=== PATIENT | female | born 1950 | race Caucasian/White ===

== ENCOUNTER 2017-01-15 05:53 | Day surgery (SDC) | payer MEDICARE, MEDICAID ==
[~2017-01-15 05:53] MED LIST: Buffered Lidocaine 0.9% SYRIN* 5 ML/SYR SYRINGE INTRADERM ONE
[2017-01-15] MEDS ORDERED: Buffered Lidocaine 0.9% SYRIN* 5 ML/SYR SYRINGE ONE (06:05)
[2017-01-15] MEDS ORDERED: Bupivacaine 0.25% SDV* 30 ML ONE (06:20)
[2017-01-15] MEDS ORDERED: Midazolam* 1 MG/ML 2 ML VIAL (2 MG) ONE (06:43)
[2017-01-15] MEDS ORDERED: Famotidine IV* 10 MG/ML 2 ML (20 mg) ONE (06:43)
[2017-01-15] MEDS ORDERED: Dexamethasone IV* 4 MG/ML 1 ML (4 MG) ONE (06:43)
[2017-01-15] MEDS ORDERED: Lidocaine 2% PF * 5 ML VIAL ONE (06:44)
[2017-01-15] MEDS ORDERED: Propofol* 10 MG/ML 20 ML BTL IV PUSH ONE (06:44)
[2017-01-15] MEDS ORDERED: Phenylephrine IV* 40 MCG/ML 10 ML SYRINGE ONE (07:07)
[2017-01-15] MEDS ORDERED: Ondansetron INJ* 2 MG/ML VIAL ONE (07:19)
[2017-01-15 08:52] VITALS: BP 118/62
--- NOTE | 2017-01-16 03:07 | OP ---
DATE OF OPERATION: 01/15/17 - [facility] DATE OF : 50 SURGEON: Holden Murray MD METROLOGY SPECIALIST: None. ANESTHESIOLOGIST: Dr. De Oliveira. ANESTHESIA: General. PRE-OP DIAGNOSIS: Right palm mass. POST-OP DIAGNOSIS: Right palm mass. OPERATIVE PROCEDURE: Excision of right palm fascial mass, consistent with Dupuytren's nodule. INDICATIONS: Jeri is a 66-year-old female who has a right palm nodule near the origin of the thenar muscles. It was very symptomatic to her. When she would use her cane, it would cause her lot of discomfort. She also says that occasionally it would get bluish in appearance. 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 I talked to her about just observing it versus excising it. She said it was very symptomatic and she wanted it out, so we discussed the risks and benefits including the risk of damage to the motor branch and she wanted to proceed. ESTIMATED BLOOD LOSS: 2 mL. COMPLICATIONS: None. 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 DESCRIPTION OF PROCEDURE: Jeri was seen in the preoperative holding area. The correct side, site, and procedure were identified. We came back to the operating room, where the arm was prepped and draped in the usual fashion and formal time-out was performed. I made a V-shaped incision and raised a full-thickness flap right off of the nodule. It was indeed a thickened area of the palmar fascia. I found clean healthy margins and began the excision proximally. It was raised deeply straight off the subcutaneous tissue taking great care to preserve any deep neurovascular structures. Once the mass was fully excised, I went ahead and passed it off. The wound was copiously irrigated. I excised just a bit more of the palmar fascia proximally. I was very satisfied with the excision at this point, so I went ahead and irrigated out the wound. The skin was closed with 4-0 nylon suture. The operative area was infiltrated with 0.25% Marcaine. Wound was dressed with Xeroform, 4x4, sterile Webril and an Chris wrap. Tourniquet was deflated. The arm had been exsanguinated with the Esmarch and the tourniquet inflated to 250 mmHg prior to making skin incision. The hand pinked up immediately. She was then taken to recovery room in stable condition. [id number]/[facility] #: [id number] ERIN
== END 2017-01-15 08:45 | disposition home or self-care (01) ==
LOC: OREAST 05:53
PROVIDERS: ATTEND Orthopaedic Surgery Hand Surgery
DX: M72.0 Palmar fascial fibromatosis [Dupuytren] (principal); G40.909 Epilepsy, unspecified, not intractable, without status epilepticus; F17.210 Nicotine dependence, cigarettes, uncomplicated; Z79.82 Long term (current) use of aspirin; Z88.1 Allergy status to other antibiotic agents; Z88.5 Allergy status to narcotic agent
CPT/HCPCS: 88305; J1100; J2250; J2405; J2704

== ENCOUNTER 2018-04-14 18:15 | Emergency (ER) | payer MEDICARE, MEDICAID ==
[2018-04-14 18:33] VITALS: BP 102/55
[2018-04-14] MEDS ORDERED: Ibuprofen TAB* 600 MG PO ONE (18:58)
--- NOTE | 2018-04-14 19:27 | ED ---
Upper Extremity Pain - HPI Summary HPI Summary: Patient is a 67-year-old female presenting to the ED with a left wrist injury. 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 She states she is unable to flex or extend at the wrist. Denies any forearm or elbow pain. Denies any pain to the MCP joints or the fingertips. Denies any pain to the thumb. Denies any numbness or tingling, no color temperature changes are noted. She has never injured this area before. 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 - History of Current Complaint Chief Complaint: EDExtremityUpper Stated Complaint: LT WRIST INJURY Time Seen by Provider: 04/14/18 18:23 Hx Obtained From: Patient Mechanism Of Injury: Other - FOOSH injury Onset/Duration: Started Minutes Ago Timing: Constant Severity Initially: Moderate Severity Currently: Moderate Pain Location: Wrist Character: Aching Aggravating Factor(s): Movement, Lifting, Extension Alleviating Factor(s): Rest, Ice Associated Signs & Symptoms: Negative: Swelling, Redness, Bruising, Numbness/ Tingling, Chest Pain, Diaphoresis, Nausea, Vomiting Related History: Dominant Hand Right - Risk Factors Non-Orthopedic Risk Factor: Negative DVT Risk Factors: Negative Septic Arthritis Risk Factor: Negative Compartment Syndrome Risk Factors: Pain - Allergies/Home Medications Allergies/Adverse Reactions: Allergies Allergy/AdvReac Type Severity Reaction Status Date / Time MS Codeine [Codeine] AdvReac Mild GI Upset Verified 12/15/16 15:59 MS Erythromycin AdvReac Mild GI Upset Verified 12/15/16 15:59 [Erythromycin] PMH/Surg Hx/FS Hx/Imm Hx Previously Healthy: Yes Endocrine/Hematology History: Denies: Hx Anticoagulant Therapy, Hx Diabetes, Hx Thyroid Disease Cardiovascular History: Reports: Other Cardiovascular Problems/Disorders - 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, had cardiac cath, 0 stents Denies: Hx Angina, Hx Coronary Artery Disease, Hx Hypercholesterolemia, Hx Hypertension, Hx Myocardial Infarction, Hx Pacemaker/ICD, Hx Peripheral Vascular Disease, Hx Valvular Heart Disease Respiratory History: Reports: Hx Sleep Apnea Denies: Hx Asthma, Hx Chronic Obstructive Pulmonary Disease (COPD) GI History: Reports: Hx Gall Bladder Disease - Cholecystectomy, Hx Gastroesophageal Reflux Disease, Hx Irritable Bowel, Other GI Disorders - ULCERATIVE COLITIS Denies: Hx Ulcer History: Denies: Hx Renal Disease Musculoskeletal History: Denies: Hx Arthritis, Hx Osteoporosis Sensory History: Reports: Hx Cataracts - bilateral IOL, Hx Contacts or Glasses - glasses Denies: Hx Glaucoma, Hx Hearing Aid Opthamlomology History: Reports: Hx Cataracts - bilateral IOL, Hx Contacts or Glasses - glasses Denies: Hx Glaucoma Neurological History: Reports: Hx Headaches, Hx Migraine - on meds, Hx Seizures - on meds, Other Neuro Impairments/Disorders - hx of suicide attempts - last one 11/13/15 Denies: Hx Dementia, Hx Transient Ischemic Attacks (TIA) Psychiatric History: Reports: Hx Anxiety - on meds, Hx Depression - on meds, Hx Inpatient Treatment, Hx Suicide Attempt Denies: Hx Eating Disorder, Hx Panic Disorder, Hx of Violent Episodes Against Others, Hx Substance Abuse - Cancer History Hx Chemotherapy: No Hx Radiation Therapy: No - Surgical History Surgery Procedure, Year, and Place: Tracheostomy 1970. Hysterectomy 1992 ADDITIONAL ABD SURG POST HYSTERECTOMY COMPLICATIONS - ADHESIONS. Cholecystectomy 1992. UTERINE SUSPENSION - . BILATERAL CATATRACTS - 2009. CARDIAC CATH - NO STENTS - 1992 - CAUTERIZE NODE ON HEART Hx Anesthesia Reactions: No - Immunization History Hx Pertussis Vaccination: No Immunizations Up to Date: Yes Infectious Disease History: No Infectious Disease History: Denies: Hx Hepatitis, Hx Human Immunodeficiency Virus (HIV), Traveled Outside the [place] in Last 30 Days - Family History Known Family History: Positive: None, Other - breast cancer - Social History Occupation: Unemployed Lives: With Family Alcohol Use: Rare Hx Substance Use: No Substance Use Type: Reports: None Hx Tobacco Use: Yes Smoking Status (MU): Light Every Day Tobacco Smoker Type: Cigarettes Amount Used/How Often: 1/2 ppd for 40 years Have You Smoked in the Last Year: Yes Review of Systems Constitutional: Negative Negative: Fever, Chills, Fatigue, Skin Diaphoresis Negative: Palpitations, Chest Pain Negative: Shortness Of Breath, Cough Genitourinary: Negative Positive: no symptoms reported, see HPI Positive: Arthralgia - left wrist pain Positive: Other Neurological: Negative All Other Systems Reviewed And Are Negative: Yes Physical Exam Triage Information Reviewed: Yes Vital Signs On Initial Exam: Initial Vitals Temp Pulse Resp BP Pulse Ox 97.2 F 76 18 102/55 97 04/14/18 18:31 04/14/18 18:31 04/14/18 18:31 04/14/18 18:31 04/14/18 18:31 Vital Signs Reviewed: Yes Appearance: Positive: Well-Appearing, Well-Nourished Skin: Positive: Warm, Skin Color Reflects Adequate Perfusion Head/Face: Positive: Normal Head/Face Inspection Eyes: Positive: EOMI, JARRELL, Conjunctiva Clear Neck: Positive: Supple, No Lymphadenopathy Respiratory/Lung Sounds: Positive: Clear to Auscultation, Breath Sounds Present Cardiovascular: Positive: RRR, Pulses are Symmetrical in both Upper and Lower Extremities Musculoskeletal: Positive: Pain @ - left dorsum of the wrist - unable to flex or extend d/t pain - good cap refill/ pulses +2 intact bilaterally Neurological: Positive: Speech Normal Psychiatric: Positive: Affect/Mood Appropriate AVPU Assessment: Alert Diagnostics - Vital Signs Vital Signs Temp Pulse Resp BP Pulse Ox 04/14/18 18:31 97.2 F 76 18 102/55 97 - Laboratory Lab Statement: Any lab studies that have been ordered have been reviewed, and results considered in the medical decision making process. - Radiology No standard instances Xray Interpretation: No Acute Changes Radiology Interpretation Completed By: ED Physician - Read by MELITON Del Cid. Negative for any acute fracture. Course/Dx - Course Course Of Treatment: Patient is evaluated for left wrist injury. Left wrist x- ray obtained and read by MELITON Del Cid as negative for any acute fracture. She will still be placed in a cockup wrist splint at this time and will follow- up with orthopedics if any symptoms worsen. I have also discussed with the patient we will call tomorrow morning if there is any discrepancy with the radiology read report in the a.m. She is given ibuprofen with minimal improvement. - Diagnoses Differential Diagnosis/HQI/PQRI: Positive: Fracture (Closed), Strain, Sprain Provider Diagnoses: Pain in left wrist Discharge - Sign-Out/Discharge Documenting (check all that apply): Patient Departure - Discharge Plan Condition: Stable Disposition: HOME Referrals: Herbert Romero MD [Primary Care Provider] - Holden Murray MD [Medical Doctor] - Additional Instructions: Please follow-up with Orthopedics if any symptoms worsen Keep the splint applied for comfort Ice to the area Ibuprofen 600 mg 3 times daily - Billing Disposition and Condition Condition: STABLE Disposition: Home
--- NOTE | 2018-04-15 08:03 | RAD ---
Indication: Left wrist pain 3 views of the wrist demonstrates no fracture. No other bone or joint abnormality is identified. IMPRESSION: NO FRACTURE OF THE WRIST IS NOTED. R0
== END 2018-04-14 20:14 | disposition home or self-care (01) ==
LOC: ED 18:15
DX: M25.532 Pain in left wrist (principal); W19.XXXA Unspecified fall, initial encounter; Y92.9 Unspecified place or not applicable; F17.210 Nicotine dependence, cigarettes, uncomplicated; Z88.5 Allergy status to narcotic agent; Z88.3 Allergy status to other anti-infective agents
CPT/HCPCS: 99281; A9270-GY

== ENCOUNTER 2018-06-26 14:21 | Observation (INO) | payer MEDICARE, MEDICAID ==
[2018-06-26] MEDS ORDERED: Ondansetron INJ* 2 MG/ML VIAL IV ONE (14:31)
[2018-06-26] MEDS ORDERED: NS 0.9% 1000 ML* 1,000 ML IV ONE (14:31)
--- NOTE | 2018-06-26 14:34 | ED ---
Abdominal Pain/Female - HPI Summary HPI Summary: Patient is a 67 y/o F brought in by ambulance with complaints of lower abdominal pain, loose stools, nausea and syncopal episode. She reports Hx of chronic abdominal pain, woke up with severe abdominal pain this morning that is similar to her chronic pain. Pain is described as cramping. Patient states that she was going to the kitchen to get her dogs water, states that she woke up on the floor. She states that she is unsure of duration of syncope. Patient called EMS. EMS reported BG 150, o2 100. Chest pain, SOB, blurred vision is denied. Patient states she has received multiple diagnoses for her abdominal pain from multiple doctors, including IBS, GERD, and "something-colitis". She notes BERMUDEZ, but reports Hx of headaches. In the room, pain is rated 9/10. Patient is unsure of date of her last CT scan. On triage, nothing is noted to aggravate/alleviate Sx. Home medications and allergies are reviewed. - History of Current Complaint Stated Complaint: ABD PAIN Hx Obtained From: Patient Onset/Duration: Lasting Hours - episode onset this morning, Still Present Timing: Hours - episode onset this morning Severity Currently: Severe - 9/10 Pain Intensity: 9 Pain Scale Used: 0-10 Numeric - 9/10 Location: Other - lower abdomen Character: Cramping Aggravating Factor(s): Nothing Alleviating Factor(s): Nothing Associated Signs and Symptoms: Positive: Nausea, Other: - POSITIVE - LOOSE STOOLS, SYNCOPAL EPISODE, BERMUDEZ; NEGATIVE - SOB, BLURRED VISION. 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, had cardiac cath, 0 stents Denies: Hx Angina, Hx Coronary Artery Disease, Hx Hypercholesterolemia, Hx Hypertension, Hx Myocardial Infarction, Hx Pacemaker/ICD, Hx Peripheral Vascular Disease, Hx Valvular Heart Disease Respiratory History: Reports: Hx Sleep Apnea Denies: Hx Asthma, Hx Chronic Obstructive Pulmonary Disease (COPD) GI History: Reports: Hx Gall Bladder Disease - Cholecystectomy, Hx Gastroesophageal Reflux Disease, Hx Irritable Bowel, Other GI Disorders - ULCERATIVE COLITIS Denies: Hx Ulcer History: Denies: Hx Renal Disease Musculoskeletal History: Denies: Hx Arthritis, Hx Osteoporosis Sensory History: Reports: Hx Cataracts - bilateral IOL, Hx Contacts or Glasses - glasses Denies: Hx Glaucoma, Hx Hearing Aid Opthamlomology History: Reports: Hx Cataracts - bilateral IOL, Hx Contacts or Glasses - glasses Denies: Hx Glaucoma Neurological History: Reports: Hx Headaches, Hx Migraine - on meds, Hx Seizures - on meds, Other Neuro Impairments/Disorders - hx of suicide attempts - last one 11/13/15 Denies: Hx Dementia, Hx Transient Ischemic Attacks (TIA) Psychiatric History: Reports: Hx Anxiety - on meds, Hx Depression - on meds, Hx Inpatient Treatment, Hx Suicide Attempt Denies: Hx Eating Disorder, Hx Panic Disorder, Hx of Violent Episodes Against Others, Hx Substance Abuse - Cancer History Hx Chemotherapy: No Hx Radiation Therapy: No - Surgical History Surgery Procedure, Year, and Place: Tracheostomy 1970. Hysterectomy 1992 ADDITIONAL ABD SURG POST HYSTERECTOMY COMPLICATIONS - ADHESIONS. Cholecystectomy 1992. UTERINE SUSPENSION - . BILATERAL CATATRACTS - 2009. CARDIAC CATH - NO STENTS - 1992 - CAUTERIZE NODE ON HEART Hx Anesthesia Reactions: No Infectious Disease History: Denies: Hx Hepatitis, Hx Human Immunodeficiency Virus (HIV) - Family History Known Family History: Positive: Other - breast cancer - Social History Alcohol Use: Rare Hx Substance Use: No Substance Use Type: Reports: None Hx Tobacco Use: Yes Smoking Status (MU): Light Every Day Tobacco Smoker Type: Cigarettes Amount Used/How Often: 1/2 ppd for 40 years Have You Smoked in the Last Year: Yes Review of Systems Negative: Blurred Vision Negative: Chest Pain Negative: Shortness Of Breath Positive: Abdominal Pain, Nausea, Other - POSITIVE - LOOSE STOOLS Positive: Headache, Syncope All Other Systems Reviewed And Are Negative: Yes Physical Exam - Summary Physical Exam Summary: VITAL SIGNS: Reviewed. GENERAL: Patient is a well-developed and nourished female who is lying comfortable in the stretcher. Patient is not in any acute respiratory distress. HEAD AND FACE: Normocephalic and atraumatic. EYES: PERRLA, EOMI x 2, No injected conjunctiva. EARS: Hearing grossly intact. Ear canals and tympanic membranes are WNL. MOUTH: Oropharynx within normal limits. NECK: Supple, trachea is midline, no adenopathy, no JVD. CHEST: Symmetric, no tenderness at palpation LUNGS: Clear to auscultation bilaterally. No wheezing or crackles. CVS: RRR, S1 and S2 present, no murmurs or gallops appreciated. ABDOMEN: Soft, diffuse abdominal tender. No signs of distention. Positive bowel sounds. No rebound no guarding, and no masses palpated. No abdominal bruit or pulsations. EXTREMITIES: FROM in all major joints, no edema, no cyanosis or clubbing. NEURO: Alert and oriented x 3. No acute neurological deficits. Speech is normal. SKIN: Dry and warm Triage Information Reviewed: Yes Vital Signs On Initial Exam: Initial Vitals Pulse BP Pulse Ox 58 125/72 95 06/26/18 14:26 06/26/18 14:26 06/26/18 14:26 Vital Signs Reviewed: Yes Diagnostics - Laboratory Result Diagrams: 06/26/18 14:38 06/26/18 14:38 Lab Statement: Any lab studies that have been ordered have been reviewed, and results considered in the medical decision making process. - CT ABD/PEL CT CT Interpretation Completed By: Radiologist Summary of CT Findings: IMPRESSION: 1. NO EVIDENCE FOR ACUTE FINDING. 2. STATUS POST CHOLECYSTECTOMY THERE IS INTRA AND EXTRAHEPATIC DUCTAL DISTENTION WHICH IS. UNCHANGED. 3. COMPLEX CYSTIC AND SOLID LESION IN THE LEFT KIDNEY. RECOMMEND AN OUTPATIENT MULTIPHASE. CONTRAST-ENHANCED CT OF THE KIDNEYS FOR FURTHER EVALUATION. 4. BILATERAL NONOBSTRUCTING RENAL CALCULI. 5. STATUS POST HYSTERECTOMY. THIS REPORT WAS REVIEWED BY ED PHYSICIAN. - EKG 1442 Cardiac Rate: Bradycardia - rate of 52 bpm EKG Rhythm: Sinus Bradycardia EKG Comparison: No Significant Change - similar to EKG from 07/11/16 Summary of EKG Findings: EKG showed sinus bradycardia with rate of 52 bpm, no ST elevation, similar to EKG from 07/11/16 Abdominal Pain Fem Course/Dx - Course Course Of Treatment: Patient is a 67 y/o F brought in by ambulance with complaints of lower abdominal pain, loose stools, nausea and syncopal episode. She reports Hx of chronic abdominal pain, woke up with severe abdominal pain this morning that is similar to her chronic pain. Pain is described as cramping. Patient states that she was going to the kitchen to get her dogs water , states that she woke up on the floor. She states that she is unsure of duration of syncope. Patient called EMS. EMS reported BG 150, o2 100. Chest pain , SOB, blurred vision is denied. Patient states she has received multiple diagnoses for her abdominal pain from multiple doctors, including IBS, GERD, and "something-colitis". She notes BERMUDEZ, but reports Hx of headaches. In the room , pain is rated 9/10. Patient is unsure of date of her last CT scan. On triage, nothing is noted to aggravate/alleviate Sx. Home medications and allergies are reviewed. Blood work without any significant abnormality except for glucose 116 , lipase 165. Abdominal pelvic CT impression: IMPRESSION: 1. NO EVIDENCE FOR ACUTE FINDING. 2. STATUS POST CHOLECYSTECTOMY THERE IS INTRA AND EXTRAHEPATIC DUCTAL DISTENTION WHICH IS. UNCHANGED. 3. COMPLEX CYSTIC AND SOLID LESION IN THE LEFT KIDNEY. RECOMMEND AN OUTPATIENT MULTIPHASE. CONTRAST-ENHANCED CT OF THE KIDNEYS FOR FURTHER EVALUATION. 4. BILATERAL NONOBSTRUCTING RENAL CALCULI. 5. STATUS POST HYSTERECTOMY. It seems that the etiology of the pain may be due to that patient is developing acute pancreatitis. The patient has been given 2 doses of morphine, zofran for the nausea and vomiting. Since the patient continues to have pain I discussed my physical exam and findings with Dr. Teresa from the hospital services, Dr. Teresa accepted the patient for admission. The patient is hemodynamically stable. - Diagnoses Provider Diagnoses: Pancreatitis - Provider Notifications Discussed Care Of Patient With: Lupe Teresa Time Discussed With Above Provider: 15:55 Instructed by Provider To: Other - Patient's case was discussed with Dr. Teresa. Dr. Teresa accepts patient for admission. Discharge - Sign-Out/Discharge Documenting (check all that apply): Patient Departure - admit - Discharge Plan Condition: Stable Disposition: ADMITTED TO [facility] Referrals: Herbert Romero MD [Primary Care Provider] - - Billing Disposition and Condition Condition: STABLE Disposition: Admitted to [facility] - Attestation Statements Document Initiated by Scribe: Yes Documenting Scribe: ALFONSO DUNLAP Provider For Whom Scribe is Documenting (Include Credential): ISABEL DOWLING MD Scribe Attestation: I, ALFONSO DUNLAP , scribed for ISABEL DOWLING MD on 06/26/18 at 1838. Scribe Documentation Reviewed: Yes Provider Attestation: The documentation as recorded by the [email or web address] romero accurately reflects the service I personally performed and the decisions made by me, ISABEL DOWLING MD Status of Scribe Document: Viewed
[2018-06-26] MEDS ORDERED: Morphine VIAL* 4 MG/ML VIAL (1 ml vial) IV ONE ×2 (14:35→16:13)
[2018-06-26 14:49] LABS: ABS Basophils 0.1 10^3/ul (0-0.2); ABS Eosinophils 0.1 10^3/ul (0-0.6); ABS Lymphocytes 1.2 10^3/ul (1.0-4.8); ABS Monocytes 0.5 10^3/ul (0-0.8); ABS Neutrophils 4.8 10^3/ul (1.5-7.7); ABS Nucleated RBC 0 10^3/ul; Eosinophil % 1.9 %; Hematocrit 44 % (35-47); Hemoglobin 14.9 g/dl (12.0-16.0); Lymphocyte % 18.5 %; Mean Corpuscular HGB Conc 34 g/dl (31-36); Mean Corpuscular Hemoglobin 33 pg (27-31); Mean Corpuscular Volume 97 fL (80-97); Mean Platelet Volume 10.3 fL (7.4-10.4); Nucleated Red Blood Cells % 0; Platelet Count 193 10^3/ul (150-450); Red Blood Count 4.54 10^6/ul (4.00-5.40); Red Cell Distribution Width 13 % (10.5-15); White Blood Count 6.7 10^3/ul (3.5-10.8)
--- OUTSIDE RECORDS SUMMARY | 2018-06-26 15:05 | XMS REPORT | Continuity of Care Document ---
:1950 External Reference #:[id number] Author Name Xiomara Courtney MD Address [address] [place] [address] Care Team Providers Name Role Phone Herbert Romero MD Care Team Information Earring Maker Unavailable Herbert Romero MD Primary Care Physician Unavailable Payers Type Date Identification Numbers Payment Provider Subscriber Policy Number: [id number] Medicare Jeri Winn PayID: [id number] [facility] [address] [place] [address] Policy Number: [id number] Medicaid/Medicare Jeri Winn Group Name: 2 1 [facility] [employer] GP PayID: [id number] [address] [place] [address] Advance Directives Description No Information Available Problems Description No Information Family History Description No Information Available Social History Type Date Description Comments Sex Unknown Tobacco Use Start: Unknown Patient is a current smoker, smokes every day Smoking Status Reviewed: 06/08/18 Patient is a current smoker, smokes every day Allergies, Adverse Reactions, Alerts Date Description Reaction Status Severity Comments 05/19/2018 Erythromycin Active 06/10/2018 Codeine Active Medications Medication Date Status Form Strength Qnty SIG Indications Ordering Provider Pantoprazole 06/08/ Active Tablets DR 40mg 30tabs take 1 Xiomara Sodium 2018 tablet Foor-Gama daily. MD veronica take 30-60 minutes before eating. Rosuvastatin 10/20/ Active Tablets 10mg 90tabs E78.4 Veronica, Calcium 2015 EVA Kauffman Aspirin Ec 10/20/ Active Tablets DR 81mg E78.4 Saul Romero 2015 MD marilou Topamax / Active Tablets 50mg 60tabs Unknown 0000 Lomotil / Active Tablets 2.5-0.025m Unknown 0000 g Robinul / Active Tablets 1mg Unknown 0000 Alprazolam / Active Tablets 0.5mg Unknown 0000 Desvenlafaxine / Active Tablets ER 100mg Unknown ER 0000 24HR Dexilant / Hx Capsules 60mg Unknown 0000 - DR 2017 Amitriptyline / Hx Tablets 50mg Unknown HCL 0000 - 2017 Immunizations Description No Information Available Vital Signs Date Vital Result Comment 06/08/2018 1:21pm Height 62 inches 5'2" Weight 143.00 lb BP Systolic 114 mmHg BP Diastolic 70 mmHg Heart Rate 76 /min BMI (Body Mass Index) 26.2 kg/m2 Results Test Date Facility Test Result H/L Range Note Laboratory test 11/07/2015 N2N/CCD Import Acetaminophen < 15 ug/mL 1 finding Alcohol < 10 mg/dL <10 Amphetamine Ur Screen None Detected None Detect Barbiturates Urine Screen None Detected None Detect Benzodiazepine Urine Screen Presumptive Posi <See Note> None Detect 2 Salicylate < 2.50 mg/dL <30 TSH (Thyroid Stim Horm) 1.23 ?IU/mL 0.34-5.60 Urine Cannabinoids Screen None Detected None Detect Urine Cocaine Screen None Detected None Detect Urine Culture And Sensitivities See Result Below 3 Urine Opiates Screen None Detected None Detect Urine Phencyclidine Screen None Detected None Detect 4 CBC Auto Diff 11/07/2015 N2N/CCD Import Abs Basophils 0.1 10^3/uL 0-0.2 Abs Eosinophils 0.2 10^3/uL 0-0.6 Abs Lymphocytes 2.3 10^3/uL 1.0-4.8 Abs Monocytes 0.4 10^3/uL 0-0.8 Abs Neutrophils 5.4 10^3/uL 1.5-7.7 Abs Nucleated RBC 0.01 10^3/uL Basophil % 0.7 % 0-2 Eosinophil % 2.0 % 0-6 Granulocyte % 65.0 % 38-83 Hematocrit 44 % 35-47 Hemoglobin 14.1 g/dL 12.0-16.0 Lymphocyte % 27.5 % 25-47 Mean Corpuscular HGB Conc 32 g/dL 31-36 Mean Corpuscular Hemoglobin 32 pg High 27-31 Mean Corpuscular Volume 100 fL High 80-97 Mean Platelet Volume 10 um3 7.4-10.4 Monocyte % 4.8 % 1-9 Nucleated Red Blood Cells % 0.1 1 Platelet Count 281 10^3/uL 150-450 Red Blood Count 4.39 10^6/uL 4.0-5.4 Red Cell Distribution Width 14 % 10.5-15 White Blood Count 8.4 10^3/uL 3.5-10.8 Comp Metabolic Panel 11/07/2015 [employer] Import Albumin 4.5 g/dL 3.2-5.2 Albumin/Globulin Ratio 1.7 1 1-3 Alkaline Phosphatase 85 U/L 34-104 Alt 11 U/L 7-52 Anion Gap 7 mmol/L 2-11 Ast 16 U/L 13-39 BUN/Creatinine Ratio 10.8 1 8-20 Blood Urea Nitrogen 10 mg/dL 6-24 Calcium 9.0 mg/dL 8.6-10.3 Chloride 104 mmol/L 101-111 Co2 Carbon Dioxide 27 mmol/L 22-32 Creatinine 0.93 mg/dL 0.51-0.95 Egfr 78.1 1 >60 5 Egfr Non- 60.7 1 >60 Globulin 2.6 g/dL 2-4 Glucose 116 mg/dL High 70-100 Potassium 3.4 mmol/L Low 3.5-5.0 Sodium 138 mmol/L 133-145 Total Bilirubin 0.50 mg/dL 0.2-1.0 Total Protein 7.1 g/dL 6.4-8.9 Urinalysis Profile 11/07/2015 [employer] Import Urine Appearance Clear Urine Bacteria Absent Absent Urine Bilirubin Negative Negative Urine Blood Negative Negative Urine Color Yellow Urine Glucose Negative Negative Urine Ketones Negative Negative Urine Leukocytes 2+ Negative Urine Nitrite Negative Negative Urine Protein Negative Negative Urine Red Blood Cell Trace(0-2/hpf) Absent Urine Specific Red House 1.004 1 Low 1.010-1.030 Urine Squamous Epithelial Cell Present Absent Urine Urobilinogen Negative Negative Urine White Blood Cell 1+(6-10/hpf) Absent Urine pH 6.0 1 5-9 Laboratory test 07/26/2015 [employer] Import C Reactive < 1.00 mg/L < 5.00 6 finding Protein Partial Thrombo Time PTT 28.7 s 26.0-36.3 CBC Auto Diff 07/26/2015 [employer] Import Abs Basophils 0.1 10^3/uL 0-0.2 Abs Eosinophils 0.2 10^3/uL 0-0.6 Abs Lymphocytes 2.7 10^3/uL 1.0-4.8 Abs Monocytes 0.5 10^3/uL 0-0.8 Abs Neutrophils 3.5 10^3/uL 1.5-7.7 Abs Nucleated RBC 0.01 10^3/uL Basophil % 0.8 % 0-2 Eosinophil % 2.3 % 0-6 Granulocyte % 50.6 % 38-83 Hematocrit 42 % 35-47 Hemoglobin 13.9 g/dL 12.0-16.0 Lymphocyte % 39.1 % 25-47 Mean Corpuscular HGB Conc 33 g/dL 31-36 Mean Corpuscular Hemoglobin 33 pg High 27-31 Mean Corpuscular Volume 99 fL High 80-97 Mean Platelet Volume 10 um3 7.4-10.4 Monocyte % 7.2 % 1-9 Nucleated Red Blood Cells % 0.1 1 Platelet Count 244 10^3/uL 150-450 Red Blood Count 4.25 10^6/uL 4.0-5.4 Red Cell Distribution Width 13 % 10.5-15 White Blood Count 6.9 10^3/uL 3.5-10.8 Comp Metabolic Panel 07/26/2015 N2N/CCD Import Albumin 4.1 g/dL 3.2-5.2 Albumin/Globulin Ratio 1.8 1 1-3 Alkaline Phosphatase 86 U/L 34-104 Alt 8 U/L 7-52 Anion Gap 6 mmol/L 2-11 Ast 14 U/L 13-39 BUN/Creatinine Ratio 10.2 1 8-20 Blood Urea Nitrogen 9 mg/dL 6-24 Calcium 9.3 mg/dL 8.6-10.3 Chloride 103 mmol/L 101-111 Co2 Carbon Dioxide 26 mmol/L 22-32 Creatinine 0.88 mg/dL 0.51-0.95 Egfr 83.2 1 >60 7 Egfr Non- 64.7 1 >60 Globulin 2.3 g/dL 2-4 Glucose 95 mg/dL 70-100 Potassium 3.2 mmol/L Low 3.5-5.0 Sodium 135 mmol/L 133-145 Total Bilirubin 0.30 mg/dL 0.2-1.0 Total Protein 6.4 g/dL 6.4-8.9 Inr/Protime 07/26/2015 N2N/CCD Import Inr 1.01 1 0.89-1.11 Laboratory test finding 07/05/2013 N2N/CCD Import Amylase 36 U/L 20-120 C Reactive Protein < 0.5 mg/dL Less than 0.5 Lipase 13 U/L Low 22-51 CBC Auto Diff 07/05/2013 N2N/CCD Import Abs Basophils 0.1 10^3/uL 0-0.2 Abs Eosinophils 0.1 10^3/uL 0-0.6 Abs Lymphocytes 1.5 10^3/uL 1.0-4.8 Abs Monocytes 0.4 10^3/uL 0-0.8 Abs Neutrophils 3.3 10^3/uL 1.5-7.7 Abs Nucleated RBC 0 10^3/uL Basophil % 1.1 % 0-2 Eosinophil % 2.2 % 0-6 Granulocyte % 61.0 % 38-83 Hematocrit 39 % 35-47 Hemoglobin 13.2 g/dL 12.0-16.0 Lymphocyte % 27.5 % 25-47 Mean Corpuscular HGB Conc 34 g/dL 31-36 Mean Corpuscular Hemoglobin 32 pg High 27-31 Mean Corpuscular Volume 95 fL 80-97 Mean Platelet Volume 9 um3 7.4-10.4 Monocyte % 8.2 % 1-9 Nucleated Red Blood Cells % 0.1 1 Platelet Count 225 10^3/uL 150-450 Red Blood Count 4.11 10^6/uL 4.0-5.4 Red Cell Distribution Width 13 % 10.5-15 White Blood Count 5.5 10^3/uL 4.8-10.8 Comp Metabolic Panel 07/05/2013 [facility] Import Albumin 4.0 g/dL 3.2-5.2 Albumin/Globulin Ratio 1.7 1 1-3 Alkaline Phosphatase 105 U/L 30-110 Alt 15 U/L 14-54 Anion Gap 7.0 mmol/L 2-11 Ast 26 U/L 12-42 BUN/Creatinine Ratio 8.8 1 8-20 Blood Urea Nitrogen 7 mg/dL 6-24 Calcium 9.1 mg/dL 8.1-9.9 Chloride 102 mmol/L 101-111 Co2 Carbon Dioxide 27.0 mmol/L 22-32 Creatinine 0.80 mg/dL 0.50-1.40 Egfr 93.5 1 >60 8 Egfr Non- 72.7 1 >60 Globulin 2.3 g/dL 2-4 Glucose 92 mg/dL 70-100 Potassium 3.4 mmol/L Low 3.5-5.0 Sodium 136 mmol/L 133-145 Total Bilirubin 0.7 mg/dL 0.4-1.5 Total Protein 6.3 g/dL 6.2-8.1 1 Therapeutic concentration: <50 ug/mL Toxic concentration: >120 ug/mL 2 Presumptive Positive Presumptive positive results are unconfirmed. 3 SEE RESULT BELOW Name: JERI WINN : [address]: Oumar Wilson MD Acct: [id number] Unit: [id number] AGE: 64 Location: [facility] Re11/07/15 SEX: F Status: ADM IN SPEC: [id number] GRAHAM: 11/07/[address] [facility] [address]: Yessi SALEEM REQ: [id number] RECD: 11/07/15 STATUS: RACHAEL SILVA DR: Herbert Garduno MD _ SOURCE: URINE SPDESC: ORDERED: Urine Culture Procedure Result Reported Site Urine Culture Final 11/08/15- 1647 ML No Growth (<1,000 CFU/mL) * ML - MAIN LAB ([facility]) . END OF REPORT * ML=Testing performed at Main Lab DEPARTMENT OF PATHOLOGY, [address] [place] [address] Skinny Stephens M.D. Director [facility] # [id number] 4 The urine specimen was tested at the listed cutoffs: Drug class test level (ng/mL) Amphetamines 500 Barbiturates 200 Benzodiazepine metabolites 200 Cocaine metabolites 150 Cannabinoids 50 Opiates 300 Pcp 25 Specimen was received without chain of custody. Results should be used for medical purposes only. 5 Because ethnic data is not always readily available, this report includes an eGFR for both -Americans and non- Americans. The National Kidney Disease Education Program (NKDEP) does not endorse the use of the MDRD equation for patients that are not between the ages of 18 and 70, are , have extremes of body size, muscle mass, or nutritional status, or are non- or non-. According to the National Kidney Foundation, irrespective of diagnosis, the stage of the disease is based on the level of kidney function: Stage Description GFR(mL/min/1.73 m(2)) 1 Kidney damage with normal or decreased GFR 90 2 Kidney damage with mild decrease in GFR 60-89 3 Moderate decrease in GFR 30-59 4 Severe decrease in GFR 15-29 5 Kidney failure <15 (or dialysis) 6 Acute inflammation: >10.00 7 Because ethnic data is not always readily available, this report includes an eGFR for both -Americans and non- Americans. The National Kidney Disease Education Program (NKDEP) does not endorse the use of the MDRD equation for patients that are not between the ages of 18 and 70, are , have extremes of body size, muscle mass, or nutritional status, or are non- or non-. According to the National Kidney Foundation, irrespective of diagnosis, the stage of the disease is based on the level of kidney function: Stage Description GFR(mL/min/1.73 m(2)) 1 Kidney damage with normal or decreased GFR 90 2 Kidney damage with mild decrease in GFR 60-89 3 Moderate decrease in GFR 30-59 4 Severe decrease in GFR 15-29 5 Kidney failure <15 (or dialysis) 8 Because ethnic data is not always readily available, this report includes an eGFR for both -Americans and non- Americans. The National Kidney Disease Education Program (NKDEP) does not endorse the use of the MDRD equation for patients that are not between the ages of 18 and 70, are , have extremes of body size, muscle mass, or nutritional status, or are non- or non-. According to the National Kidney Foundation, irrespective of diagnosis, the stage of the disease is based on the level of kidney function: Stage Description GFR(mL/min/1.73 m(2)) 1 Kidney damage with normal or decreased GFR 90 2 Kidney damage with mild decrease in GFR 60-89 3 Moderate decrease in GFR 30-59 4 Severe decrease in GFR 15-29 5 Kidney failure <15 (or dialysis) Procedures Date Code Description Status 08/08/2003 22911 Colonoscopy Completed Encounters Description No Information Available Plan of Treatment Future Appointment(s):09/10/2018 3:45 pm - Xiomara Courtney MD at [facility]06/08/2018 - Xiomara Courtney MDK21.9 Gastro-esophageal reflux disease without ksnfkazoqdoY13.7 Diarrhea, hotglzbotwhW70.00 Constipation, paiykmocwrsT65.010 Personal history of colonic polyps
[2018-06-26 15:13] LABS: EGFR Non-African American 57.3 (>60)
[2018-06-26] MEDS ORDERED: Ondansetron ODT TAB* 4 MG PO PRN (17:14)
[2018-06-26] MEDS ORDERED: Diphenoxylat/Atrop 2.5-0.025M* 1 TAB PO PRN (17:14)
[2018-06-26] MEDS ORDERED: Nicotine Inhaler* 10 MG AMP INH PRN (17:24)
[2018-06-26] MEDS: ALPRAZolam TAB* 0.5 MG PO SCH (20:05)
[2018-06-26] MEDS: Topiramate TAB(*) 25 MG PO SCH (20:05)
[2018-06-26] MEDS: Mirtazapine TAB* 15 MG PO SCH (20:05)
[2018-06-26] MEDS: Heparin VIAL(*) 5000 UNITS/ML VIAL (FIVE THOUSAND) SUBCUT SCH (20:27)
[2018-06-26 20:43] LABS: Urine Appearance Clear; Urine Blood 1+ (Negative); Urine Color Yellow; Urine Ketones Negative (Negative); Urine Protein Negative (Negative); Urine Red Blood Cell Absent (Absent); Urine Specific Gravity 1.012 (1.010-1.030); Urine Urobilinogen Negative (Negative); Urine White Blood Cell 1+(6-10/hpf) (Absent)
[2018-06-26] MEDS: Acetaminophen TAB* 325 MG PO PRN (21:57)
--- NOTE | 2018-06-26 22:43 | HP ---
CC: Dr. Romero.* HOSPITAL MEDICINE HISTORY AND PHYSICAL: DATE OF ADMISSION: 06/26/18 PRIMARY CARE PHYSICIAN: Dr. Romero. ATTENDING PHYSICIAN: Dr. Lupe Teresa * (dictation provided by Crystal Scott NP ). CHIEF COMPLAINT: "I found myself on the floor." HISTORY OF PRESENT ILLNESS: Ms. Ascencio is a 67-year-old female with a past medical history of depression, pseudoseizures, migraines, suicidal ideation, who presents to the hospital today with concern for an episode of finding herself on the floor of unclear circumstance. Ms. Ascencio states that she has had severe depression for all of her life, but most notably it had been seemed more severe in the past few weeks. For the past few days, she has noted increased diarrhea. She states that she has an uncertain gastroenterological problem by which she will have episodes of constipation alternating with episodes of diarrhea. She states that this episode seemed similar to those episodes, but that it seemed to last longer than usual. She has had some nausea and vomiting, which is also consistent with these episodes. She denies any chest pain, shortness of breath, fever. She has been trying to increase her oral intake. She states that she is quite sedentary and spends all day sitting in a chair reading. She states that she feels quite lonely and has minimal of support systems in the community. She does follow with a therapist on a weekly basis. Today, she got up at about 1 o'clock to go fix herself something to eat and the next thing she knew she found herself on the floor. She had knocked over her dog's bowl of water. Within about 45 minutes from that time period, EMS had arrived to bring her to the hospital for evaluation. The patient is unclear how long she was on the ground and seemingly unconscious, but it seems that it was no longer than 45 minutes in total. In the emergency room, Ms. Ascencio had labs that were unremarkable. She does have a slight elevation in her lipase to 165. She is denying abdominal pain at this time, although she has complained of abdominal pain intermittently since arrival. She did confirm that this abdominal pain was consistent with her previous history of chronic abdominal pain. She had an abdomen and pelvis CT, which showed no acute abnormalities. PAST MEDICAL HISTORY: 1. Depression, suicidal ideation. 2. Chronic abdominal pain with alternating periods of constipation and diarrhea consistent with possible diagnosis of irritable bowel syndrome. 3. Migraines. 4. Cholecystitis. 5. Hysterectomy. 6. History of nonepileptic seizures. MEDICATIONS: 1. Pantoprazole 40 mg p.o. daily. 2. Desvenlafaxine 50 mg p.o. q.p.m. 3. Aspirin 81 mg p.o. q.a.m. 4. Alprazolam 0.5 mg p.o. b.i.d. 5. Topamax 50 mg p.o. b.i.d. 6. Rosuvastatin 10 mg p.o. q.p.m. 7. Ondansetron 4 mg p.o. q.6 hours p.r.n. 8. Mirtazapine 7.5 mg p.o. at bedtime. 9. Lomotil 1 tab p.o. 4 times a day p.r.n. ALLERGIES: To CODEINE and ERYTHROMYCIN BASE. FAMILY HISTORY: The patient states her mother is alive and well at 95. Her dad related to emphysema. SOCIAL HISTORY: The patient is a half a pack a day smoker. She denies any regular alcohol use and she states that she drinks only very occasionally. No reported drug use. She is unable to name her healthcare proxy. REVIEW OF SYSTEMS: A 14-point review of systems was completed with Ms. Ascencio and all those not mentioned above were negative. PHYSICAL EXAMINATION GENERAL: Ms. Ascencio is lying in the bed. She is in no acute distress. VITAL SIGNS: Temperature 97.7, pulse rate 55, respiratory rate 12, O2 saturation 100% on room air, blood pressure 107/69. HEART: S1, S2. No murmur, rub or gallop, and regular. ABDOMEN: Soft, nontender. Bowel sounds positive x4. EXTREMITIES: No cyanosis or edema. SKIN: Intact. NEURO: She is alert. She is oriented x3. She moves all extremities equally. There is no facial asymmetry or focal weakness. Extraocular movements are intact. DIAGNOSTIC STUDIES/LAB DATA: Sodium 139, potassium 3.8, chloride 108, serum bicarbonate 25, BUN 13, creatinine 0.97, glucose 116. Lactic acid 1.1. Troponin 0.00. CRP less than 1.00, lipase 165. WBC 6.7, hemoglobin 14.9, hematocrit 44, platelet count 193. CT abdomen and pelvis shows "no evidence for acute findings, status post cholecystectomy and there is intra and extrahepatic ductal distention, which is unchanged, complex cystic and solid lesion in the left kidney, recommend an outpatient multiphase contrast enhanced CT if they need for further evaluation. Bilateral nonobstructing renal calculi and status post hysterectomy." EKG shows a sinus bradycardia with a heart rate about 50 and no evidence of ischemia. ASSESSMENT: Ms. Ascencio is a 67-year-old female with a past medical history of depression, suicidal ideation, likely irritable bowel syndrome, and pseudoseizures, who presents today to the hospital with concern for findings herself in the floor and possible syncopal episode. Our plans are for observation in the hospital for the followin. Syncope: The patient does not remember the events leading up to findings herself from the floor. It is possible that she had a syncopal episode, was concerning possibly this would be an arrhythmia. She will be monitored on acid retort operator overnight. She has no evidence of infection. No metabolic abnormalities. Her vital signs are stable. It is also possible that she could have a pseudoseizure or some other conversion type disorder given her complex psychiatric history. She does endorse a recent history of worsening depressive symptoms. She denies suicidal ideation, but states "I just wish sometimes I were not here." I think she deserves evaluation by a psychiatric team for consideration of admission to mental health unit once her evaluation on the medical floor is complete. 2. Hyperlipidemia: Continue rosuvastatin. 3. Diarrhea: The patient reports a terminal make up operator history of intermittent periods of constipation and diarrhea. She states that her symptoms that she has now are consistent with previous. Based on the symptomatology alone, it sounds like she may have irritable bowel syndrome. I do note that she is following closely already with Dr. Courtney [facility] and has plans for upper and lower endoscopy there in August. I think no further workup is indicated at this time, but we will continue to evaluate and adjust that further if needed. 4. DVT prophylaxis with heparin subcu. 5. Code status is full code. TIME SPENT: Approximately 60 minutes was spent on the admission of this patient , more than half of the time was spent with the patient at the bedside reviewing the events leading up to this hospitalization, performing the physical examination, and reviewing my plan of care. CRYSTAL SCOTT, DRAPERY MAKER [id number]/[facility] #: [id number] ERIN
[2018-06-27] MEDS ORDERED: NS 0.9% 500 ML* 500 ML IV ONE (01:21)
[2018-06-27] MEDS: Heparin VIAL(*) 5000 UNITS/ML VIAL (FIVE THOUSAND) SUBCUT SCH ×3 (05:35→20:36)
[2018-06-27] MEDS: ALPRAZolam TAB* 0.5 MG PO SCH ×2 (07:50→20:35)
[2018-06-27] MEDS: Omeprazole CAP* 20 MG PO SCH (07:50)
[2018-06-27] MEDS: Topiramate TAB(*) 25 MG PO SCH ×2 (07:51→20:35)
[2018-06-27] MEDS: Aspirin 81 mg CHEW TAB* 81 MG TAB.CHEW PO SCH (07:52)
[2018-06-27] MEDS ORDERED: Iodixanol* (CONTRAST) 320 MG/ML 100 ML SDV IV SCH (10:51)
[2018-06-27] MEDS: Morphine VIAL* 4 MG/ML VIAL (1 ml vial) IV PRN ×2 (13:59→20:36)
--- NOTE | 2018-06-27 15:17 | PN ---
Subjective Date of Service: 06/27/18 Interval History: Pt seen and examined. Meds and labs reviewed. CC: Depressed, but denies SI/HI ROS: Denied BERMUDEZ/dizziness, F/C, N/V, CP, SOB, increased cough, sputum production , abd pain, diarrhea, constipation, dysuria, myalgias, arthralgias, throat pain , and new skin lesions. The rest of the 14 point ROS are unremarkable. PHYSICAL EXAM: GEN APPEARANCE: Awake, not in acute distress, Ox3 HEENT: NC/AT, PERRLA, moist oral mucosa, (-) throat erythema NECK: Soft, supple, (-) cervical LAD, (-)JVD HEART: S1S2 WNL, RRR, No MRG CHEST: CTA, BL, GAE, No W/R/R ABD: Soft, ND/NT, NABS 4x Q EXT: No C/C/E SKIN: Warm to touch PSYCH: No active psychosis, hallucinations, (+)Depression, (-)SI/HI Objective Active Medications: Acetaminophen (Tylenol Tab*) 650 mg PO Q6H PRN PRN Reason: PAIN Last Admin: 06/26/18 21:57 Dose: 650 mg Alprazolam (Xanax Tab*) 0.5 mg PO BID [facility] Last Admin: 06/27/18 07:50 Dose: 0.5 mg Aspirin (Aspirin 81 Mg Chew Tab*) 81 mg PO QAM [facility] Last Admin: 06/27/18 07:52 Dose: 81 mg Atorvastatin Calcium (Lipitor*) 20 mg PO 1700 MITA Calcium Polycarbophil (Fibercon Tab*) 625 mg PO AC [facility] Diphenoxylate HCl/Atropine (Lomotil Tab*) 1 tab PO QID PRN PRN Reason: DIARRHEA Heparin Sodium (Porcine) (Heparin Vial(*)) 5,000 units SUBCUT Q8HR [facility] Last Admin: 06/27/18 13:59 Dose: 5,000 units Iodixanol (Visipaque* 320 (Contrast)) 80 ml IV ONCE [facility] Stop: 06/29/18 10:50 Last Admin: 06/27/18 12:11 Dose: 80 ml Mirtazapine (Remeron Tab*) 7.5 mg PO BEDTIME [facility] Last Admin: 06/26/18 20:05 Dose: 7.5 mg Morphine Sulfate (Morphine Vial*) 1 mg IV Q4H PRN PRN Reason: PAIN Last Admin: 06/27/18 13:59 Dose: 1 mg Nicotine (Nicotine Inhaler*) 10 mg INH Q2H PRN PRN Reason: CRAVING Omeprazole (Prilosec Cap*) 20 mg PO DAILY [facility] Last Admin: 06/27/18 07:50 Dose: 20 mg Ondansetron HCl (Zofran Odt Tab*) 4 mg PO Q6H PRN PRN Reason: NAUSEA Topiramate (Topamax(*)) 50 mg PO BID [facility] Last Admin: 06/27/18 07:51 Dose: 50 mg Vital Signs - 8 hr 06/27/18 06/27/18 06/27/18 07:30 07:50 09:50 Temperature 98.4 F Pulse Rate 50 Respiratory 16 16 18 Rate Blood Pressure 103/55 (mmHg) O2 Sat by Pulse 100 Oximetry 06/27/18 06/27/18 06/27/18 11:34 13:59 14:47 Temperature 97.7 F Pulse Rate 60 73 Respiratory 16 16 Rate Blood Pressure 91/47 96/55 (mmHg) O2 Sat by Pulse 94 Oximetry Oxygen Devices in Use Now: Nasal Cannula Result Diagrams: 06/26/18 14:38 06/26/18 14:38 Assess/Plan/Problems-Billing Assessment: - Patient Problems (1) Syncope Current Visit: Yes Status: Acute Code(s): R55 - SYNCOPE AND COLLAPSE SNOMED Code(s): 539664074 Comment: -Ordered CTA of H&N, w/c did not show any significant PURVI nor aneurysm, however , it does show cerebellar atrophy w/c may contribute to falls but not necessarily LOChowever, pt is a very poor historian to provide details of purported syncope -R/O for VTE w/D-dimer WNL -Continue to trend troponins -Reviewed o/n telemetry and only showed asymptomatic sinus bradycardia while asleep -Denies any form of urinary symptoms and absence of leukocytosis and fever suggests asymptomatic bacteriuria and not UTI w/U/A data -Serum prolactin ordered and was found to be normal -Orthostatics ordered and although a mild drop in BP observed from supine to standing position, it did not meet clinical criteria for orthostasis -EEG pending given pts previous hx of siezures -Will await psych eval (2) Depressive disorder Current Visit: No Status: Chronic Priority: High Code(s): F32.9 - MAJOR DEPRESSIVE DISORDER, SINGLE EPISODE, UNSPECIFIED SNOMED Code(s): 06792157 Comment: -Please see above discussion -Continue Mirtazapine---currently at lowest dose 7.5 mg qHS -Unclear whether psych issues contributing or primary factor for presentation presumed to be syncope (3) Hyperlipidemia Current Visit: Yes Status: Acute Code(s): E78.5 - HYPERLIPIDEMIA, UNSPECIFIED SNOMED Code(s): 94737031 Comment: -Rosuvastatin non-formulary, thus, ordered co-equivalent dose of Atorvastatin (4) Diarrhea Current Visit: Yes Status: Acute Code(s): R19.7 - DIARRHEA, UNSPECIFIED SNOMED Code(s): 67233375 Comment: -Reports long-term hx of intermittent constipation and diarrhea---suspicious for IBS -Will place on Fibercon tabs qAC -Will continue watchful waiting (5) Seizure disorder Current Visit: No Status: Acute Code(s): G40.909 - EPILEPSY, UNSP, NOT INTRACTABLE, WITHOUT STATUS EPILEPTICUS SNOMED Code(s): 481520234 Comment: -Continue Topiramate (6) DVT prophylaxis Current Visit: Yes Status: Acute Code(s): XSV1685 - SNOMED Code(s): 686535066 Comment: -Continue Heparin SQq8H Status and Disposition: -For PT eval -For possible D/C in AM once cleared by psych and evaluated by PT -Awaiting EEG
[2018-06-27] MEDS: Calcium Polycarbophil TAB* 625 MG PO SCH (16:57)
[2018-06-27] MEDS ORDERED: Atorvastatin* 20 MG TAB PO SCH (17:00)
[2018-06-27] MEDS: Mirtazapine TAB* 15 MG PO SCH (20:34)
[2018-06-28] MEDS: Morphine VIAL* 4 MG/ML VIAL (1 ml vial) IV PRN ×3 (02:37→11:55)
[2018-06-28] MEDS: Heparin VIAL(*) 5000 UNITS/ML VIAL (FIVE THOUSAND) SUBCUT SCH ×2 (05:28→16:27)
[2018-06-28 06:16] LABS: ABS Basophils 0.1 10^3/ul (0-0.2); ABS Eosinophils 0.2 10^3/ul (0-0.6); ABS Lymphocytes 3.3 10^3/ul (1.0-4.8); ABS Monocytes 0.5 10^3/ul (0-0.8); ABS Neutrophils 3.1 10^3/ul (1.5-7.7); ABS Nucleated RBC 0 10^3/ul; Eosinophil % 2.3 %; Hematocrit 38 % (35-47); Hemoglobin 12.6 g/dl (12.0-16.0); Lymphocyte % 45.7 %; Mean Corpuscular HGB Conc 33 g/dl (31-36); Mean Corpuscular Hemoglobin 32 pg (27-31); Mean Corpuscular Volume 97 fL (80-97); Mean Platelet Volume 10.7 fL (7.4-10.4); Nucleated Red Blood Cells % 0.1; Platelet Count 170 10^3/ul (150-450); Red Blood Count 3.91 10^6/ul (4.00-5.40); Red Cell Distribution Width 13 % (10.5-15); White Blood Count 7.2 10^3/ul (3.5-10.8)
[2018-06-28 06:33] LABS: EGFR Non-African American 64.9 (>60)
[2018-06-28] MEDS: ALPRAZolam TAB* 0.5 MG PO SCH (07:37)
[2018-06-28] MEDS: Calcium Polycarbophil TAB* 625 MG PO SCH ×2 (07:37→11:54)
[2018-06-28] MEDS: Topiramate TAB(*) 25 MG PO SCH (07:38)
[2018-06-28] MEDS: Omeprazole CAP* 20 MG PO SCH (07:40)
[2018-06-28] MEDS: Aspirin 81 mg CHEW TAB* 81 MG TAB.CHEW PO SCH (07:40)
[2018-06-28] MEDS ORDERED: Mouth Piece, Nicotine* 1 EACH CARTRIDGE ONE (11:51)
[2018-06-28] MEDS: Acetaminophen TAB* 325 MG PO PRN (11:54)
[2018-06-28 12:49] VITALS: BP 106/59
[2018-06-28] MEDS ORDERED: Al Hydrox/Mg Hydrox/Simet LIQ* 30 ML UDC PO PRN (15:09)
[2018-06-28] MEDS ORDERED: Magnesium Oxide TAB* 400 MG PO ONE (16:18)
--- NOTE | 2018-06-28 16:21 | ECHO ---
Patient: RUI WINN [facility] Rec#: [id number] : 1950 Date: 06/28/2018 Age: 67y Height: 157 cm / 61.8 in Weight: 64 kg / 141.1 lbs Sex: F BSA: 1.64 Room#: [facility] Admit Date#: 06/26/2018 Type: Inpatient Referring: Trace Connell Reading: Srinivas Moulton MD Manufacturing Engineering Manager: Autumn Sparks RN RDCS CC: Herbert Romero MD Transthoracic Echocardiogram Indication: Syncope BP: 110/57 HR: 58 Rhythm: Bradycardia Findings History: Migraines, CVA, seizure disorder Technical Comments: The study quality is fair. Left Ventricle: The left ventricular chamber size is normal. There is no left ventricular hypertrophy. There is increased basal septal hypertrophy noted without evidence of an increased gradient across the left ventricular outflow tract. Global left ventricular wall motion and contractility are within normal limits. Left ventricular systolic function is at the lower limits of normal. The estimated ejection fraction is 50-55%. The assessment of diastolic function is non-diagnostic. Left Atrium: The left atrial chamber size is normal. Right Ventricle: The right ventricular chamber size and systolic function are within normal limits. Right Atrium: The right atrial cavity size is normal. A bubble study was negative on a prior transthoracic echo and was not repeated today per Dr. Connell. Aortic Valve: The aortic valve leaflets are mildly thickened. There is aortic annular calcification. There is trace to mild aortic regurgitation. There is no evidence of aortic stenosis. Mitral Valve: The mitral valve leaflets are mildly thickened. There is mild mitral regurgitation. There is no evidence of mitral stenosis. Tricuspid Valve: The tricuspid valve leaflets are normal. There is mild tricuspid regurgitation. No pulmonary hypertension is noted. There is no tricuspid stenosis. Pulmonic Valve: The pulmonic valve structure is not well visualized. There is no evidence of pulmonic regurgitation. There is no pulmonic stenosis. Pericardium: There is no significant pericardial effusion. Aorta: There is no dilatation of the ascending aorta. The aortic arch is not well visualized. There is no dilation of the aortic root. Pulmonary Artery: The main pulmonary artery is not well visualized. Venous: The venous system is not well visualized. The inferior vena cava is not visualized. Summary: There are no significant changes when compared to the previous study done on 07/13/16 Conclusions There is increased basal septal hypertrophy noted without evidence of an increased gradient across the left ventricular outflow tract. Global left ventricular wall motion and contractility are within normal limits. Left ventricular systolic function is at the lower limits of normal. The estimated ejection fraction is 50-55%. The right atrial cavity size is normal. A bubble study was negative on a prior transthoracic echo and was not repeated today per Dr. Connell. There is trace to mild aortic regurgitation. There is mild mitral regurgitation. There is mild tricuspid regurgitation. No pulmonary hypertension is noted. There is no significant pericardial effusion. Measurements Name Value Normal Range RVIDd (AP) 2D 2.4 cm (0.9 - 2.6) RVDdMajor (2D) 2.7 cm (2.2 - 4.4) RAd ISD 4CH 4 cm (3.4 - 4.9) RA (A4C)W 2.8 cm (2.9 - 4.6) IVSd (2D) 0.7 cm (0.6 - 1) LVPWd (2D) 0.7 cm (0.6 - 1) LVIDd (2D) 4.6 cm (3.6 - 5.4) LVIDs (2D) 3.2 cm - LV FS (2D) 30 % (25 - 45) Aortic Annulus 1.9 cm (1.4 - 2.6) Ao root diameter (2D) 3 cm (2.1 - 3.5) Ascending Ao 3.3 cm (2.1 - 3.4) LA dimension (AP) 2D 3.1 cm (2.3 - 3.8) LAd ISD 4CH 3.5 cm (2.9 - 5.3) LA ISD 4CH W 3.1 cm (2.5 - 4.5) Name Value Normal Range LA ESV BP (A/L) index 18 ml/m2 - Name Value Normal Range MV E-wave Vmax 0.77 m/sec - MV deceleration time 335 msec - MV A-wave Vmax 0.95 m/sec - MV E:A ratio 0.8 ratio - LV septal e' Vmax 0.05 m/sec - LV lateral e' Vmax 0.06 m/sec - LV E:e' septal ratio 15.4 ratio - LV E:e' lateral ratio 12.8 ratio - Name Value Normal Range AV Vmax 1.5 m/sec - AV VTI 31.7 cm - AV peak gradient 9 mmHg - AV mean gradient 6 mmHg - LVOT Vmax 1.2 m/sec - LVOT VTI 21.7 cm - LVOT peak gradient 6 mmHg - LVOT mean gradient 3 mmHg - Name Value Normal Range TR Vmax 2.3 m/sec - TR peak gradient 21 mmHg - RAP 8 mmHg - RVSP 29 mmHg - Name Value Normal Range PV Vmax 0.72 m/sec -
--- NOTE | 2018-06-28 23:41 | CONS ---
CONSULTATION REPORT: DATE OF CONSULT: 06/28/18 ATTENDING CLINICIAN: Shirley Schofield NP CONSULTING PHYSICIAN: Dr. Chuck Pham. REASON FOR CONSULT: Depression. SUBJECTIVE HISTORY: Psychiatry is asked to see this 67-year-old white female with a history of chronic depression, who is currently hospitalized on the telemetry unit following a fall in her home due to concerns of the primary team that perhaps the patient's depression was somehow related to this episode. I spoke with her attending, Shirley Schofield who indicated that the patient had syncopal episode but thus far her workup has been largely negative and they are close to discharging her pending psychiatric clearance. At no time she made a suicidal statement according to the primary team. When I met with the patient, she is cooperative, although slightly irritable. She indicates that she goes to [facility] once a week where she sees Amanda Porter as a therapist and Dr. Ambar Panda as her psychiatrist. She indicates that the week leading up to this hospitalization, she has been having daily diarrhea and vomiting. She started to have abdominal pain. She failed to see how her depression might be related, stating that she suffered with depression for the past 60 years. Apparently, the patient lives alone in her own house here in [place], [place] and has limited psychosocial support being largely estranged from her family having no children and having very little in the way of social activities. I screened her for major depression and she admitted to insomnia, anhedonia, poor energy and lack of appetite; however, she denied guilts, concentration problems, or psychomotor retardation. Interestingly, when I asked her about suicidal ideations, she responded by saying, "I would not mind dying at all. I really do not see the point of going on living." When I asked her about formal plan or intention to , she denies active suicidality, but indicates more or less that she has had suicidal ideations since she was in her 20s. PAST PSYCHIATRIC HISTORY: The patient is currently taking mirtazapine 7.5 mg daily, Pristiq 100 mg daily, Xanax 0.5 mg p.o. b.i.d. She has had several suicidal overdoses in her life with the last being in 2000. She has had several hospitalizations here at [facility] with the last being in 2016 under the service of Dr. Gurvinder Clark. She has been on numerous antidepressants as well as adjunctive therapies with such medications as Abilify , Seroquel, and Latuda. She did go through to ECT as an inpatient 8 to 9 years ago at [facility] during an inpatient hospitalization there. She states all of her prior antidepressant therapies including ECT have been of limited benefit. SUBSTANCE ABUSE HISTORY: Negative for alcohol or illicit drugs. She does smoke one-half pack of cigarettes per day. PAST MEDICAL HISTORY: Significant for chronic abdominal pain, thought to be secondary to irritable bowel syndrome. She has migraines, cholecystitis, history of hysterectomy, history of non-epileptic seizures, history of stroke in 2017. CURRENT MEDICATIONS: Include, 1. Pantoprazole 40 mg daily. 2. Pristiq 100 mg daily. 3. Aspirin 81 mg daily. 4. Xanax 0.5 mg twice daily. 5. Topamax 50 mg twice daily. 6. Rosuvastatin 10 mg p.o. q. p.m. 7. Ondansetron 4 mg every 4 hours as needed for nausea. 8. Remeron 7.5 mg p.o. q.h.s. 9. Lomotil one tablet p.o. 4 times daily. ALLERGIES: She is allergic to CODEINE and ERYTHROMYCIN. FAMILY HISTORY: She has 1 sister with depression who is now . There are no suicides known at the family. SOCIAL HISTORY: The patient was born and raised in [place], [place] to an intact family where she was the 2nd of 6 total children. The patient insists that she was treated differently from all of her siblings, being forced into a caregiving role where she assisted in the upbringing of her younger siblings. Apparently, her father 20 years ago, but her mother is still alive, living in [place], [place]. 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 She is single. She after her 1 marriage and had no children. She is fairly socially isolated without much in the way of friends or family locally and she states that she prefers being alone. The patient describes herself as somewhat spiritual, but does not attend orthodox. She has no history of legal problems. MENTAL STATUS EXAM: The patient is an aging white female with graying hair, who is calm, cooperative, slightly irritable initially. She is a good historian and her speech has a normal rate, tone, and volume. Mood appears to be depressed with constricted tearful affect. Thought process is linear, goal directed. Thought content is significant for her concerns of her somatic complaints. She is endorsing some vague passive suicidality, but denies active suicidal thinking or intentions. She denies homicidality. She denies auditory or visual hallucinations. Insight and judgment are fair given her willingness to follow with outpatient treatment in the community. Cognitively, she is awake and alert with what would appear to be an average intellect. DIAGNOSES: As follows: [place] I: Major depressive disorder, recurrent, moderate. [place] II: Deferred. ASSESSMENT: The patient is a 67-year-old white female with a history of recurrent depression, who was admitted to the telemetry unit following a syncopal episode and the primary team is wondering whether this is perhaps related to undertreated depression. At this time, the patient remains depressed and has multiple neurovegetative symptoms of depression; however, she is actively treated on the outpatient basis by Dr. Panda and her therapist at [facility]. The patient is not active threat to herself or others and I feel that she is psychiatrically cleared to be discharged to follow up with outpatient resources. RECOMMENDATIONS TO PRIMARY TEAM: Psychiatry is recommending that the patient to be discharged. She has a follow-up appointment with her therapist, Amanda Porter on 06/30/18 at 2 o'clock p.m. We do not recommend any changes in her medications at this time, but she can follow up with Dr. Ambar Panda as needed on an outpatient basis. Psychiatry is signing off. Thank you for the consult. [id number]/[facility] #: [id number] ERIN
--- NOTE | 2018-06-29 13:12 | EEG ---
ELECTROENCEPHALOGRAPHY: DATE OF STUDY: 06/28/18 LOCATION: She is in room 441. REFERRING PHYSICIAN: Dr. Connell. CLINICAL HISTORY: Episode of the patient finding herself on the floor and unaware what had happened for 45 minutes in duration. This was on 06/26/18. MEDICATIONS: Include: 1. Morphine. 2. Remeron. 3. Lipitor. 4. Topamax. 5. Prilosec. 6. Alprazolam. REPORT: This 16-channel EEG is remarkable for background rhythms consisting of alpha rhythm in the occipital derivations at about 8 cycles per second. Moderate voltage beta rhythms are seen bifrontally and centrally. Occasionally, rhythmic bitemporal activities noted. Activation procedures were not attempted. The patient drowses with central and bitemporal slowing, but does not fall asleep. There are no clinical events. There are no focal, lateralized , or epileptiform abnormalities. CLINICAL IMPRESSION: Normal awake and drowsy EEG. [id number]/[facility] #: [id number] [facility]
--- NOTE | 2018-06-29 15:57 | DS ---
CC: Dr. Romero.* DISCHARGE SUMMARY: 06/27/18 DATE OF DISCHARGE: 06/28/18 PRIMARY CARE PROVIDER: Dr. Romero. ATTENDING PHYSICIAN: Dr. Younger * (dictated by Virgen Bales NP) PRIMARY DIAGNOSIS: Syncope. SECONDARY DIAGNOSES: 1. Hyperlipidemia. 2. Diarrhea/abdominal pain. 3. Depression. CONSULTATIONS WHILE IN THE HOSPITAL: Dr. Pham. PROCEDURES WHILE IN THE HOSPITAL: No procedures. STUDIES WHILE IN THE HOSPITAL: Head CTA: No evidence for significant carotid stenosis. No evidence of aneurysm. Cerebral atrophy unchanged. Abdominal CT: No evidence of the acute findings, status post cholecystectomy, and there is intra and extra hepatic ductal distention which is unchanged, complex cyst and solid lesions of left kidney, recommend an outpatient multiphase contrast- enhanced CT if they need to be further evaluated, bilateral not obstructing renal calculi, and status post hysterectomy. Echocardiogram: Increased basal septal hypertrophy noted without evidence of increased gradient across the left ventricle. EF 50% to 55%. Trace to mild aortic regurgitation. Mild mitral regurgitation. Mild tricuspid regurgitation. DISCHARGE HOME MEDICATIONS: Dorothy Medications: No new home medications. Continued Home Medications: 1. Protonix 40 mg p.o. daily. 2. Pristiq 50 mg p.o. q.p.m. 3. Aspirin 81 mg p.o. q.a.m. 4. Xanax 0.5 mg p.o. b.i.d. 5. Topamax 50 mg p.o. b.i.d. 6. Crestor 10 mg p.o. q.p.m. 7. Zofran 4 mg ODT tab q.6 hours p.r.n. nausea. 8. Remeron 7.5 mg p.o. at bedtime. 9. Lomotil 1 tab p.o. q.i.d. p.r.n. 10. Maalox 30 mL p.o. q.6 hours p.r.n. Discontinued Home Medications: No home medications were discontinued. HISTORY OF PRESENT ILLNESS/HOSPITAL COURSE: Ms. Ascencio is a 67-year-old female with a past medical history of depression, suicidal ideation, chronic abdominal pain, constipation, diarrhea, migraine, cholecystitis, non-epileptic seizures, who presented to the ED on 06/26/18 with complaint of syncope. Please see history and physical dictated by Belia Caruso for complete summary of the events leading up to hospitalization, but in short the patient recalled going to fix herself something to eat and the next thing she knew she woke on the floor. The patient was brought to the emergency room for further evaluation. In the emergency her labs were unremarkable and abdominal CT showed no acute abnormalities. She was admitted for observation to further evaluate the syncopal episode. During this hospital stay, patient remained on telemetry floor. She was in sinus rhythm with an average rate of 75 beats per minute. The patient remained free from any syncopal/presyncopal episodes during her admission. She also was free from seizure activity. Her labs remain stable. She underwent echo as mentioned above, the patient also underwent EEG and we are awaiting results. The patient was also seen by Dr. Pham due to her depression. Dr. Pham agreed that patient is safe for discharge and needed no adjustment to psych medications as she has a followup with her outpatient therapist on Thursday. Today, Ms. Ascencio is stable for discharge and is requesting discharge. Her vital signs are as follows: Temp 98.9, heart rate 64, respiratory rate 16, O2 saturation 96% on room air. BP 106/59. Labs: Sodium 139, potassium 3.7, chloride 107, carbon dioxide 26, BUN 12, creatinine 0.87, magnesium 1.8. WBC 7.2, hemoglobin 12.6, hematocrit 38, platelet 170. REVIEW OF SYSTEMS: The patient complains of upper abdominal pain, which is relieved by belching or passing gas. The patient denies dizziness, lightheadedness, visual changes, tinnitus, chest pain, shortness of breath, nausea, vomiting, diarrhea, and palpitations. A 12-point review of system is completed and all others negative. PHYSICAL EXAM: General: Ms. Ascencio is sitting in bed. She is in no acute distress. She is cheerful because she wants to be discharged. HEENT: Head nontraumatic, normocephalic. EOMs intact. Sclerae normal. Oral mucosa moist. Neck: Supple. No cervical or supraclavicular adenopathy. Heart: S1, S2. No murmur, rubs or gallops. Abdomen: Soft, mildly tender to palpation diffusely. Bowel sounds positive x4. Extremities: No cyanosis or edema. Skin: Intact. Neuro: Alert, oriented x3, full ROM. No focal deficits or weakness. Psych: The patient reports mild depression which is her baseline. Denies SI. Denies HI. Denies thoughts of self-injurious behavior. DISCHARGE PLAN/FOLLOWUP: 1. Syncope: The patient does not drive. The patient is educated about continuing not to drive or swim, bathe unattended, operate heavy machinery, climb ladder, or work on roof. The patient was free from syncopal/presyncopal/ seizure activity while admitted. The patient has scheduled followup with Dr. Patiño who she was established with on 07/09/18 at 3 p.m. The patient was encouraged to keep this appointment and EEG can be reviewed at this time. 2. Depressive disorder: The patient is to continue medications as same. The patient is safe for discharge as she is free from suicidal ideation. The patient has close followup with her outpatient therapist. 3. Abdominal pain: The patient reports that the abdominal pain she is experiencing today is the same the abdominal pain that she experienced intermittently for 20 years in addition to intermittent diarrhea and constipation. The patient has a scheduled followup with Dr. Courtney in August. We have scheduled the patient a closer followup in July with Dr. Courtney to evaluate symptoms. 4. Education: The patient was educated on new/worsening symptoms and when to call 911, return to ED, go to primary care provider. The patient states understanding. 5. Magnesium. Educated the patient on low magnesium of 1.8. Encouraged the patient to take mag oxide 400 mg p.o. daily and follow up with primary care to have labs redrawn. I reviewed this plan with my attending Dr. Younger who agrees with the plan. This is a summarized report of a complex medical history and hospital stay. For further details please see the entire medical record. TIME SPENT: Approximately 45 minutes were spent on this admission, greater than half of that spent face to face to the patient discussing discharge plans and instructions. VIRGEN BALES, EVA [id number]/[facility] #: [id number] ERIN
== END 2018-06-28 19:00 | disposition home or self-care (01) ==
LOC: ED 14:21 → MEDTELE 17:11
PROVIDERS: ADMIT Internal Medicine; ATTEND Internal Medicine
DX: R55 Syncope and collapse (principal); E78.5 Hyperlipidemia, unspecified; R10.9 Unspecified abdominal pain; R19.7 Diarrhea, unspecified; F32.9 Major depressive disorder, single episode, unspecified; Z79.82 Long term (current) use of aspirin; G43.909 Migraine, unspecified, not intractable, without status migrainosus; G40.909 Epilepsy, unspecified, not intractable, without status epilepticus; Z90.710 Acquired absence of both cervix and uterus; Z87.19 Personal history of other diseases of the digestive system; Z88.6 Allergy status to analgesic agent; F17.210 Nicotine dependence, cigarettes, uncomplicated
CPT/HCPCS: 36415; 70496; 70498; 74176; 80053; 81003; 81015; 82150; 83605; 83690; 83735; 84100; 84146; 84443; 84484; 85025; 85379; 86140; 87086; 93005; 93306; 95816; 96361; 96372; 96374; 96375; 96376; 99284; 99406; A9270-GY; G0378; G8978-GP-CH; G8979-GP-CH; G8980-GP-CH; J1644; J2270; J2405; Q9967

== ENCOUNTER 2018-07-07 05:39 | Day surgery (SDC) | payer MEDICARE, MEDICAID ==
[2018-07-07] MEDS ORDERED: Famotidine IV* 10 MG/ML 2 ML (20 mg) IV ONE (06:00)
[2018-07-07] MEDS ORDERED: Famotidine IV* 10 MG/ML 2 ML (20 mg) ONE (06:12)
[2018-07-07] MEDS ORDERED: Naloxone* 0.4 MG/ML 1 ML VIAL IV PRN (07:55)
[2018-07-07] MEDS ORDERED: DiMENhydriNATE IV* 50 MG/ML VIAL IV PUSH PRN (07:55)
[2018-07-07] MEDS ORDERED: Acetaminophen TAB* 325 MG PO PRN (07:55)
[2018-07-07] MEDS ORDERED: KETAMINE HCL* 50 MG/ML 10 ML VIAL ONE (08:05)
[2018-07-07] MEDS ORDERED: fentaNYL* 50 MCG/ML 2 ML VIAL (100 MCG VIAL) ONE (08:05)
[2018-07-07] MEDS ORDERED: Midazolam* 1 MG/ML 5 ML VIAL (5 MG) ONE (08:05)
[2018-07-07] MEDS ORDERED: Lidocaine 2% PF * 5 ML VIAL ONE (08:21)
[2018-07-07] MEDS ORDERED: Propofol* 10 MG/ML 20 ML BTL ONE (08:21)
[2018-07-07] MEDS ORDERED: Ondansetron INJ* 2 MG/ML VIAL ONE (08:21)
[2018-07-07 09:47] VITALS: BP 105/71
--- NOTE | 2018-07-10 14:31 | PRO ---
CC: Herbert Romero MD * DATE OF PROCEDURE: 07/07/18 [facility] REFERRING PROVIDER: Herbert Romero MD PROCEDURE: EGD with biopsy. INDICATIONS: Chronic GERD and diarrhea. MEDICATIONS: Given by Anesthesia. DESCRIPTION OF PROCEDURE: Full disclosure of risks were reviewed with the patient as detailed on the consent form. The patient was placed in the left lateral decubitus position and monitored with continuous pulse oximetry, interval blood pressure monitoring, and direct observation. A bite block was placed between the teeth and Olympus gastroscope was then inserted into the patient's mouth and advanced down the esophagus, into the stomach and into the distal duodenum. Findings are detailed below. FINDINGS: Esophagus was a normal tubular structure without rings or strictures. There is an irregular Z-line occurring at 37 cm with the proximal tongue extending to 36 cm. Biopsies were obtained. There was a hiatal hernia with the top of the gastric fold measuring 40 cm. Scope was then advanced into the stomach. The stomach was examined in forward and retroflex views. There was mild antral erythema. Biopsy obtained and sent for CLOtest. Scope was then advanced into the duodenum. Duodenum was normal in appearance without erosions or ulcers. Scope was then withdrawn from the patient. The patient tolerated the procedure well and was recovered in the GI recovery area. IMPRESSION: 1. Irregular Z-line biopsied. 2. Hiatal hernia. 3. Mild gastric antral erythema. FOLLOWUP: 1. Await pathology. 2. Continue PPI. 3. Proceed with colonoscopy. See separately dictated procedure report. Thank you very much for this kind referral. [id number]/[facility] #: [id number] [facility]
--- NOTE | 2018-07-10 14:48 | PRO ---
CC: Herbert Romero MD * DATE OF PROCEDURE: 07/07/18 [facility] PROCEDURE PERFORMED: Colonoscopy with biopsy, complete. REFERRING PROVIDER: Herbert Romero MD INDICATIONS: Colon cancer screening and chronic diarrhea. MEDICATIONS: DESCRIPTION OF PROCEDURE: Full disclosure of risks were reviewed with the patient as detailed on the consent form. The patient was placed in the left lateral decubitus position and monitored with continuous pulse oximetry, capnography, interval blood pressure monitoring, and direct observation. After anorectal examination was performed, the pediatric colonoscope was advanced to the sigmoid colon descending junction. The distal left colon was very tight and tortuous. Pediatric colonoscope was unable to get past this area. The scope was removed. Gastroscope was then inserted into the rectum and advanced again to the level of the sigmoid and descending colon junction. This was a very tight angle and the scope was unable to advance forward. The patient then developed vomiting under sedation. At this point, the decision was made to abort the procedure as the concern was that the risks would outweigh the benefits of proceeding further. Biopsies obtained as the scope was slowly withdrawn to rule out microscopic colitis. No inflammation or polyps noted on withdrawal. The patient recovered in the GI recovery area. IMPRESSION: 1. Incomplete colonoscopy to descending colon. Very difficult colonoscopy. The patient had a failed colonoscopy as well [place] [address] Sneed. 2. Normal colonic mucosa within this limited exam. FOLLOWUP: 1. Await pathology. 2. We will discuss with the patient the possible referral to either [facility] or [facility] for a second attempt at colonoscopy. Thank you very much for this kind referral. [id number]/[facility] #: [id number] ERIN
== END 2018-07-07 10:23 | disposition home or self-care (01) ==
LOC: OR 05:39
PROVIDERS: ATTEND Internal Medicine Gastroenterology
DX: K59.00 Constipation, unspecified (principal); R19.7 Diarrhea, unspecified; K44.9 Diaphragmatic hernia without obstruction or gangrene; Z86.010 Personal history of colon polyps; F32.9 Major depressive disorder, single episode, unspecified
CPT/HCPCS: 87077; 88305; J2250; J2405; J2704; J3010

== ENCOUNTER 2019-09-19 12:22 | Emergency (ER) | payer MEDICARE, MEDICAID ==
--- OUTSIDE RECORDS SUMMARY | 2019-09-19 12:31 | XMS REPORT ---
:1950 Author Organization [facility] Care Team Providers Name Role Phone Mesha Porter Primary Care Physician Unavailable Allergies, Adverse Reactions, Alerts Allergy Code CodeSystem Reaction Severity Criticality Status Start Substance Date Moderate Medications Medication Medication Medication Start Stop Route Dose Status Fill Code CodeSystem Date Date Instructions desvenlafaxine 0307956 RxNorm 2018- oral 50 mg active for 30 succinate 8- 11-20 tablet day(s) extended release 24 hr alprazolam 471049 RxNorm 2018- oral 0.5 mg 1 active Take 1 tablet 04-14 10-19 tablet three times three a day as times a needed for 30 day day(s) desvenlafaxine 4779640 RxNorm 2018- oral 25 mg completed for 30 succinate 7-10 08-22 tablet day(s) extended release 24 hr desvenlafaxine 8089482 RxNorm 2017-07- oral 100 mg completed for 30 succinate 2- 04-11 tablet day(s) extended release 24 hr alprazolam 981940 RxNorm 2018- oral 0.5 mg 1 completed 1 tablet 4-17 05-17 tablet three times a three day for 30 times a day(s) day alprazolam 652580 RxNorm 2018- oral 0.5 mg 1 completed 1 tablet 8-14 09-13 tablet three times a three day for 30 times a day(s) day mirtazapine 831853 RxNorm 2017-07- oral 7.5 mg completed for 30 2-13 04-11 tablet day(s) alprazolam 394469 RxNorm 2018- oral 0.5 mg completed for 30 3-21 04-17 tablet day(s) alprazolam 921229 RxNorm 2018- oral 0.5 mg 1 completed 1 tablet - 06-21 tablet three times a three day as needed times a for 30 day(s) day alprazolam 119110 RxNorm 2019- oral 0.5 mg 1 completed Take 1 tablet 02-02 tablet three times three a day as times a needed for 30 day day(s) mirtazapine 190857 RxNorm 2018- oral 7.5 mg 1 active 1 tablet at 11-04 tablet bedtime for at 30 day(s) bedtime desvenlafaxine 8671082 RxNorm 2018- oral 100 mg 1 completed 1 tablet succinate 11-04 tablet once a day extended for 30 day(s) release 24 hr once a day Problems Problem Name Code CodeSystem Alternate Alternate Start End Status Narrative Code CodeSystem Date Date Nicotine 45488623 SNOMED-CT Active dependence, 10-20 unspecified, uncomplicated Recurrent 68875601 SNOMED-CT 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 patient when [address] with an [facility] [address], and [facility] [place], service [id number] (List [id number] separately in addition to the code for primary procedure) Psychotherap [id number] SNOMED-CT () 2019-03-02 complete Mental y, 45 04 d Health- minutes with [place] patient [address], [id number] [id number] Psychotherap [id number] SNOMED-CT () 2019-04-20 complete Mental y, 45 04 d Health- minutes with [place] patient [address], [id number] Psychotherap 246011 SNOMED-CT () 2019-04-27 complete Mental y, 45 04 d Health- minutes with [place] patient [address], [id number] [phone] Psychotherap 980907 SNOMED-CT () 2019-05-26 complete Mental y, 45 04 d Health- minutes with [address], [id number] [id number] Psychotherap [id number] SNOMED-CT () 2019-06-10 complete Mental y, 45 04 d Health- minutes with [address], [id number] [id number] Psychotherap 769819 SNOMED-CT () 2019-06-22 complete Mental y, 45 04 d Health- minutes with [address], [id number] Psychotherap 102831 SNOMED-CT () 2018-11-11 complete Mental y, 45 04 d Health- minutes with [address], [id number] Psychotherap 598512 SNOMED-CT () 2019-02-09 complete Mental y, 45 04 d Health- minutes with [address], [id number] [id number] Psychotherap [id number] SNOMED-CT () 2019-01-19 complete Mental y, 45 04 d Health- minutes with [address], [id number] [id number] Psychotherap [id number] SNOMED-CT () 2019-03-24 complete Mental y, 45 04 d Health- minutes with [address], [id number] [id number] Psychotherap 687492 SNOMED-CT () 2019-04-06 complete Mental y, 45 04 d Health- minutes with [address], [id number] Psychotherap 148323 SNOMED-CT () 2019-04-14 complete Mental y, 45 04 d Health- minutes with [address], [id number] [id number] Psychotherap 218957 SNOMED-CT () 2019-06-29 complete Mental y, 45 04 d Health- minutes with [address], [id number] Psychotherap 055133 SNOMED-CT () 2019-07-08 complete Mental y, 45 04 d Health- minutes with [facility] patient [address], [id number] Psychotherap [id number] SNOMED-CT () 2019-05-11 complete Mental y, 45 04 d Health- minutes with [facility] patient [address], [id number] [id number] Psychotherap 103753 SNOMED-CT () 2019-01-05 complete Mental y, 45 04 d Health- minutes with [place] patient [address], [id number] [id number] Psychotherap 032170 SNOMED-CT () 2018-11-25 complete Mental y, 45 04 d Health- minutes with [facility] patient [address], [id number] Psychotherap 117652 SNOMED-CT () 2018-10-28 complete Mental y, 45 04 d Health- minutes with [place] patient [address], [id number] Group [id number] SNOMED-CT () 2019-07-06 complete Mental psychotherap 8 d Health- y (other [place] than of a [address], [id number] [id number] Office or [id number] SNOMED-CT () 2019-03-17 complete Mental other 7 d Health- outpatient [place] visit for [address] [id number] patient, [phone] which requires at least 2 of these 3 rao components: An expanded problem focused history; An expanded problem focused examination; Medical decision making of low Office or [id number] SNOMED-CT () 2019-04-14 complete Mental other 7 d Health- outpatient [place] visit for [address], established [id number] patient, [phone] which requires at least 2 of these 3 rao components: An expanded problem focused history; An expanded problem focused examination; Medical decision making of low Office or 172908 SNOMED-CT () 2019-02-02 complete Mental other 7 d Health- outpatient [place] visit for [address], established [id number] patient, [id number] which requires at least 2 of these 3 rao components: An expanded problem focused history; An expanded problem focused examination; Medical decision making of [facility] Office or 530673 SNOMED-CT () 2018-11-10 complete Mental other 7 d Health- outpatient [place] visit for [address], established [id number] patient, [phone] which requires at least 2 of these 3 rao components: An expanded problem focused history; An expanded problem focused examination; Medical decision making of [facility] Office or [id number] SNOMED-CT () 2019-01-05 complete Mental other 7 d Health- outpatient [facility] visit for [address], established [id number] patient, [phone] which requires at least 2 of these 3 rao components: An expanded problem focused history; An expanded problem focused examination; Medical decision making of [facility] Office or 911630 SNOMED-CT () 2019-05-05 complete Mental other 6 d Health- outpatient [facility] visit for [address], established [id number] patient, [phone] which requires at least 2 of these 3 rao components: A problem focused history; A problem focused examination; [facility] medical decision making. Counselin Office or 855045 SNOMED-CT () 2019-07-06 complete Mental other 6 d Health- outpatient [place] visit for [address], established [id number] patient, [id number] which requires at least 2 of these 3 rao components: A problem focused history; A problem focused examination; [facility] medical decision making. Counsel[place] Office or [id number] SNOMED-CT () 2019-06-01 complete Mental other 6 d Health- outpatient [facility] visit for [address], established [id number] patient, [phone] which requires at least 2 of these 3 rao components: A problem focused history; A problem focused examination; [facility] medical decision making. Mylesin SNOMED-CT () 2019-02-04 complete Mental d [address], [id number] SNOMED-CT () 2018-11-18 [facility] Mental d [address], [id number] [id number] SNOMED-CT () 2018-12-21 [facility] Mental d [address], [id number] [id number] SNOMED-CT () 2018-12-28 [facility] Mental [address], [id number] SNOMED-CT () 2019-02-24 [facility] Mental [address], [id number] [phone] Encounters/Encounter Diagnoses Encounter Encounter Diagnosis Diagnosis Diagnosis Date of Service Name Code Code Name CodeSystem Diagnosis Delivery Location [id number] Recurrent SNOMED-CT Behavioral depressive Health disorder, Clinic , , current , episode severe 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 Vital Signs No Information Social History Element Description Description Start End Code CodeSystem AdditionalInfo Date Date SexAssignedAtBirth Female 1950-0 F AdministrativeGender 11-19 Hospital Discharge Instructions Reason For Referral Medical Equipment FDA Assessments
--- OUTSIDE RECORDS SUMMARY | 2019-09-19 12:31 | XMS REPORT ---
:1950 Author Organization [facility] Care Team Providers Name Role Phone VLAD UNDERWOOD Primary Care Physician Unavailable Allergies, Adverse Reactions, Alerts Allergy Code CodeSystem Reaction Severity Criticality Status Start Substance Date Moderate Medications Medication Medication Medication Start Stop Route Dose Status Fill Code CodeSystem Date Date Instructions alprazolam 961843 RxNorm 2018- oral 0.5 mg 1 completed 1 tablet 814 09-13 tablet three times a three day for 30 times a day(s) day alprazolam 713948 RxNorm 2018- oral 0.5 mg 1 completed 1 tablet 12-15 06-21 tablet three times a three day as needed times a for 30 day(s) day mirtazapine 955685 RxNorm 2017-07- oral 7.5 mg completed for 30 09-08 04-11 tablet day(s) alprazolam 928323 RxNorm 2018- oral 0.5 mg 1 completed Take 1 tablet 7-10 08-09 tablet three times three a day as times a needed for 30 day day(s) alprazolam 214897 RxNorm 2018- oral 0.5 mg 1 completed 1 tablet 4-17 05-17 tablet three times a three day for 30 times a day(s) day desvenlafaxine 6225854 RxNorm 2018- oral 50 mg active for 30 succinate 8- 11-20 tablet day(s) extended release 24 hr alprazolam 055795 RxNorm 2018- oral 0.5 mg 1 active Take 1 tablet 9-19 10-19 tablet three times three a day as times a needed for 30 day day(s) desvenlafaxine 1542469 RxNorm 2017-07- oral 100 mg completed for 30 succinate 2- 04-11 tablet day(s) extended release 24 hr alprazolam 100856 RxNorm 2019-0 2019- oral 0.5 mg completed for 30 3-21 04-17 tablet day(s) desvenlafaxine 0718996 RxNorm 2019- oral 25 mg completed for 30 succinate 02-02 08-22 tablet day(s) extended release 24 hr desvenlafaxine 4903382 RxNorm 2018- oral 100 mg 1 completed 1 tablet succinate 11-04- tablet once a day extended for 30 day(s) release 24 hr once a day mirtazapine 132360 RxNorm 2018- oral 7.5 mg 1 active 1 tablet at 11-04- tablet bedtime for at 30 day(s) bedtime Problems Problem Name Code CodeSystem Alternate Alternate Start End Status Narrative Code CodeSystem Date Date Recurrent 20151416 SNOMED-CT Active 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, 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 Nicotine 00517648 SNOMED-CT Active dependence, 10-20 unspecified, uncomplicated Recurrent 59879252 SNOMED-CT Active 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, 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 Relevant diagnostic tests/laboratory data Narrative No Information Procedures Procedure Code CodeSystem Target Date of Status Service Device Device Device Name Site Procedure Delivery Code Name UID Location Psychotherap [id number] SNOMED-CT () 2019-01-05 complete Mental y, 30 87 d Health- minutes with [place] patient when [address] with an [facility] Street, and [facility] service [id number] (List [id number] separately in addition to the code for primary procedure) Psychotherap 695836 SNOMED-CT () 2019-03-02 complete Mental y, 45 04 d Health- minutes with [place] patient [address], [id number] [id number] Psychotherap 082252 SNOMED-CT () 2019-04-20 complete Mental y, 45 04 d Health- minutes with [place] patient [address], [id number] [id number] Psychotherap 493508 SNOMED-CT () 2019-04-27 complete Mental y, 45 04 d Health- minutes with [place] patient [address], [id number] [phone] Psychotherap 026045 SNOMED-CT () 2019-05-26 complete Mental y, 45 04 d Health- minutes with [address], [id number] [id number] Psychotherap 060952 SNOMED-CT () 2019-06-10 complete Mental y, 45 04 d Health- minutes with [address], [id number] [id number] Psychotherap 172872 SNOMED-CT () 2019-06-22 complete Mental y, 45 04 d Health- minutes with [address], [id number] [phone] Psychotherap 771629 SNOMED-CT () 2019-03-24 complete Mental y, 45 04 d Health- minutes with [address], [id number] [phone] Psychotherap 039369 SNOMED-CT () 2019-04-06 complete Mental y, 45 04 d Health- minutes with [address], [id number] [phone] Psychotherap 462722 SNOMED-CT () 2019-04-14 complete Mental y, 45 04 d Health- minutes with [address], [id number] [phone] Psychotherap 402582 SNOMED-CT () 2019-01-05 complete Mental y, 45 04 d Health- minutes with [address], [id number] [phone] Psychotherap 672179 SNOMED-CT () 2018-11-25 complete Mental y, 45 04 d Health- minutes with [address], [id number] [id number] Psychotherap 922199 SNOMED-CT () 2018-10-28 complete Mental y, 45 04 d Health- minutes with [address], [id number] [phone] Psychotherap 819685 SNOMED-CT () 2018-11-11 complete Mental y, 45 04 d Health- minutes with [address], [id number] [phone] Psychotherap 527743 SNOMED-CT () 2019-02-09 complete Mental y, 45 04 d Health- minutes with [place] patient [address], [id number] [phone] Psychotherap 487028 SNOMED-CT () 2019-01-19 complete Mental y, 45 04 d Health- minutes with [place] patient [address], [id number] [phone] Psychotherap 014691 SNOMED-CT () 2019-06-29 complete Mental y, 45 04 d Health- minutes with [place] patient [address], [id number] [phone] Psychotherap 804202 SNOMED-CT () 2019-07-08 complete Mental y, 45 04 d Health- minutes with [place] patient [address], [id number] [id number] Psychotherap 162687 SNOMED-CT () 2019-05-11 complete Mental y, 45 04 d Health- minutes with [place] patient [address], [id number] [phone] Psychotherap 104498 SNOMED-CT () 2019-07-26 complete Mental y, 45 04 d Health- minutes with [place] patient [address], [id number] [id number] Psychotherap 787912 SNOMED-CT () 2019-08-10 complete Mental y, 45 04 d Health- minutes with [place] patient [address], [id number] [id number] Psychotherap 200651 SNOMED-CT () 2019-08-17 complete Mental y, 45 04 d Health- minutes with [place] patient [address], [id number] [phone] Group [id number] SNOMED-CT () 2019-08-17 complete Mental psychotherap 8 d Health- y (other [place] than of [place] [address], [id number] [id number] Group [id number] SNOMED-CT () 2019-08-10 complete Mental psychotherap 8 d Health- y (other [place] than of a [address] group) [place], [place], [id number] [id number] Group [id number] SNOMED-CT () 2019-08-03 complete Mental psychotherap 8 d Health- y (other [place] than of a [address] group) [place], [place], [id number] Group [id number] SNOMED-CT () 2019-07-06 complete Mental psychotherap 8 d Health- y (other [place] than of a [address] group) [place], [place], [id number] [phone] Office or [id number] SNOMED-CT () 2019-03-17 complete Mental other 7 d Health- outpatient [place] visit for [address] [facility] [id number] patient, [phone] which requires at least 2 of these 3 rao components: An expanded problem focused history; An expanded problem focused examination; Medical decision making of low Office or 371055 SNOMED-CT () 2019-04-14 complete Mental other 7 d Health- outpatient [place] visit for [address] [facility] [id number] patient, [phone] which requires at least 2 of these 3 rao components: An expanded problem focused history; An expanded problem focused examination; Medical decision making of low Office or 097948 SNOMED-CT () 2019-02-02 complete Mental other 7 d Health- outpatient [place] visit for [address] [facility] [id number] patient, [phone] which requires at least 2 of these 3 rao components: An expanded problem focused history; An expanded problem focused examination; Medical decision making of low Office or 581793 SNOMED-CT () 2018-11-10 complete Mental other 7 d Health- outpatient [place] visit for [address] [facility] [id number] patient, [phone] which requires at least 2 of these 3 rao components: An expanded problem focused history; An expanded problem focused examination; Medical decision making of low Office or 376508 SNOMED-CT () 2019-01-05 complete Mental other 7 d Health- outpatient [place] visit for [address], established [id number] patient, [phone] which requires at least 2 of these 3 rao components: An expanded problem focused history; An expanded problem focused examination; Medical decision making of [facility] Office or [id number] SNOMED-CT () 2019-05-05 complete Mental other 6 d Health- outpatient [place] visit for [address], established [id number] patient, [phone] which requires at least 2 of these 3 rao components: A problem focused history; A problem focused examination; [place] medical decision making. [place] Office or 667347 SNOMED-CT () 2019-07-06 complete Mental other 6 d Health- outpatient [place] visit for [address], established [id number] patient, [phone] which requires at least 2 of these 3 rao components: A problem focused history; A problem focused examination; [place]ight[place] ju[place] medical decision making. Counselin Office or 534541 SNOMED-CT () 2019-06-01 complete Mental other 6 d Health- outpatient [place] visit for [address], established [id number] patient, [phone] which requires at least 2 of these 3 rao components: A problem focused history; A problem focused examination; [place] medical decision making. Counselin SNOMED-CT () 2019-02-04 complete Mental d Health- [place], [id number] [phone] SNOMED-CT () 2018-11-18 complete Mental d Health- [place], [id number] [phone] SNOMED-CT () 2018-12-21 complete Mental d Health- [place], [id number] [phone] SNOMED-CT () 2018-12-28 complete Mental d Health- [address], [id number] [phone] SNOMED-CT () 2019-02-[address], [id number] [phone] Encounters/Encounter Diagnoses Encounter Encounter Diagnosis Diagnosis Diagnosis Date of Service Name Code Code Name CodeSystem Diagnosis Delivery Location [id number] Recurrent SNOMED-CT Behavioral depressive Health disorder, Clinic , , current , episode severe 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 Vital Signs No Information Social History Element Description Description Start End Code CodeSystem AdditionalInfo Date Date SexAssignedAtBirth Female 0 F AdministrativeGender 11-19 Hospital Discharge Instructions Reason For Referral Medical Equipment FDA Assessments
--- OUTSIDE RECORDS SUMMARY | 2019-09-19 12:31 | XMS REPORT ---
:1950 Author Organization [facility] Care Team Providers Name Role Phone VLAD UNDERWOOD Primary Care Physician Unavailable Allergies, Adverse Reactions, Alerts Allergy Code CodeSystem Reaction Severity Criticality Status Start Substance Date Moderate Medications Medication Medication Medication Start Stop Route Dose Status Fill Code CodeSystem Date Date Instructions alprazolam 789091 RxNorm 2018- oral 0.5 mg 1 active Take 1 tablet 04-14 10-19 tablet three times three a day as times a needed for 30 day day(s) desvenlafaxine 3986462 RxNorm 2018- oral 25 mg completed for 30 succinate 02-02 08-22 tablet day(s) extended release 24 hr mirtazapine 220843 RxNorm 2018- oral 7.5 mg 1 active 1 tablet at 11-04 10-08 tablet bedtime for at 30 day(s) bedtime alprazolam 904263 RxNorm 2018- oral 0.5 mg 1 completed 1 tablet 11-10 05-17 tablet three times a three day for 30 times a day(s) day desvenlafaxine 3135603 RxNorm 2017-07- oral 100 mg completed for 30 succinate 2 04-11 tablet day(s) extended release 24 hr alprazolam 981439 RxNorm 2018- oral 0.5 mg 1 completed 1 tablet 12-15 06-21 tablet three times a three day as needed times a for 30 day(s) day desvenlafaxine 7093860 RxNorm 2018- oral 100 mg 1 completed 1 tablet succinate 11-04 07-10 tablet once a day extended for 30 day(s) release 24 hr once a day alprazolam 188538 RxNorm 2018- oral 0.5 mg 1 completed Take 1 tablet 02-02 08-09 tablet three times three a day as times a needed for 30 day day(s) alprazolam 447318 RxNorm 2019- oral 0.5 mg 1 completed 1 tablet 03-09 09-13 tablet three times a three day for 30 times a day(s) day alprazolam 536150 RxNorm 2019- oral 0.5 mg completed for 30 3-21 04-17 tablet day(s) mirtazapine 109415 RxNorm 2017-07- oral 7.5 mg completed for 30 2-13 04-11 tablet day(s) desvenlafaxine 7762963 RxNorm 2019- oral 50 mg active for 30 succinate 8- 11-20 tablet day(s) extended release 24 hr Problems Problem Name Code CodeSystem Alternate Alternate Start End Status Narrative Code CodeSystem Date Date Recurrent 65474655 SNOMED-CT 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 patient when [address] with an [facility] [address], and [facility], service [id number] (List [id number] separately in addition to the code for primary procedure) Psychotherap [id number] SNOMED-CT () 2019-03-02 complete Mental y, 45 04 d Health- minutes with [facility] patient [address], [id number] [id number] Psychotherap [id number] SNOMED-CT () 2019-04-20 complete Mental y, 45 04 d Health- minutes with [facility] patient [address], [id number] [id number] Psychotherap [id number] SNOMED-CT () 2019-04-27 complete Mental y, 45 04 d Health- minutes with [facility] patient [address], [id number] [id number] Psychotherap [id number] SNOMED-CT () 2019-05-26 complete Mental y, 45 04 d Health- minutes with [address], [id number] [id number] Psychotherap [id number] SNOMED-CT () 2019-06-10 complete Mental y, 45 04 d Health- minutes with [address], [id number] Psychotherap [id number] SNOMED-CT () 2019-06-22 complete Mental y, 45 04 d Health- minutes with [address], [id number] Psychotherap [id number] SNOMED-CT () 2019-04-14 complete Mental y, 45 04 d Health- minutes with [address], [id number] [phone] Psychotherap [id number] SNOMED-CT () 2018-10-28 complete Mental y, 45 04 d Health- minutes with [address], [id number] [id number] Psychotherap [id number] SNOMED-CT () 2018-11-11 complete Mental y, 45 04 d Health- minutes with [address], [id number] Psychotherap 249153 SNOMED-CT () 2019-02-09 complete Mental y, 45 04 d Health- minutes with [address], [id number] [id number] Psychotherap [id number] SNOMED-CT () 2019-01-19 complete Mental y, 45 04 d Health- minutes with [address], [id number] [id number] Psychotherap 564314 SNOMED-CT () 2019-03-24 complete Mental y, 45 04 d Health- minutes with [address], [id number] [id number] Psychotherap [id number] SNOMED-CT () 2019-04-06 complete Mental y, 45 04 d Health- minutes with [address], [id number] [id number] Psychotherap [id number] SNOMED-CT () 2019-06-29 complete Mental y, 45 04 d Health- minutes with [facility] patient [address], [id number] [id number] Psychotherap [id number] SNOMED-CT () 2019-07-08 complete Mental y, 45 04 d Health- minutes with [facility] patient [address], [id number] [phone] Psychotherap [id number] SNOMED-CT () 2019-05-11 complete Mental y, 45 04 d Health- minutes with [facility] patient [address], [id number] [phone] Psychotherap [id number] SNOMED-CT () 2019-07-26 complete Mental y, 45 04 d Health- minutes with [facility] patient [address], [id number] [id number] Psychotherap [id number] SNOMED-CT () 2019-01-05 complete Mental y, 45 04 d Health- minutes with [facility] patient [address], [id number] [phone] Psychotherap [id number] SNOMED-CT () 2018-11-25 complete Mental y, 45 04 d Health- minutes with [facility] patient [address], [id number] Group [id number] SNOMED-CT () 2019-08-03 complete Mental psychotherap 8 d Health- y (other [facility] than of a [address]) [place], [place], [id number] [phone] Group [id number] SNOMED-CT () 2019-07-06 complete Mental psychotherap 8 d Health- y (other [facility] than of a [address]) [place], [place], [id number] [phone] Office [place] [id number] SNOMED-CT () 2019-03-17 complete Mental other 7 d Health- outpatient [facility] visit for [address], of an [place], established [id number] patient, [phone] which requires at least 2 of these 3 rao components: An expanded problem focused history; An expanded problem focused examination; Medical decision making of low Office or 219400 SNOMED-CT () 2019-04-14 complete Mental other 7 d Health- outpatient [place] visit for [address], established [id number] patient, [phone] which requires at least 2 of these 3 rao components: An expanded problem focused history; An expanded problem focused examination; Medical decision making of low Office or [id number] SNOMED-CT () 2019-02-02 complete Mental other 7 d Health- outpatient [place] visit for [address], [facility], established [id number] patient, [phone] which requires at least 2 of these 3 rao components: An expanded problem focused history; An expanded problem focused examination; Medical decision making of low Office or [id number] SNOMED-CT () 2018-11-10 complete Mental other 7 d Health- outpatient [facility] visit for [address], established [id number] patient, [phone] which requires at least 2 of these 3 rao components: An expanded problem focused history; An expanded problem focused examination; Medical decision making of low Office or 870109 SNOMED-CT () 2019-01-05 complete Mental other 7 d Health- outpatient [facility] visit for [address], established [id number] patient, [phone] which requires at least 2 of these 3 rao components: An expanded problem focused history; An expanded problem focused examination; Medical decision making of low Office or [id number] SNOMED-CT () 2019-05-05 complete Mental other 6 d Health- outpatient [facility] visit for [address], established [id number] patient, [phone] which requires at least 2 of these 3 rao components: A problem focused history; A problem focused examination; Straightforw juan medical decision making. Counselin Office or [id number] SNOMED-CT () 2019-07-06 complete Mental other 6 d Health- outpatient [facility] visit for [address], established [id number] patient, [phone] which requires at least 2 of these 3 rao components: A problem focused history; A problem focused examination; Straightforw juan medical decision making. Mylesin Office or [id number] SNOMED-CT () 2019-06-01 complete Mental other 6 d Health- outpatient [facility] visit for [address], of an [place], established [id number] patient, [phone] which requires at least 2 of these 3 rao components: A problem focused history; A problem focused examination; Straightforw juan medical decision making. Dai SNOMED-CT () 2019-02-04 complete Mental d [address], [id number] SNOMED-CT () 2018-11-18 complete Mental d [address], [id number] [id number] SNOMED-CT () 2018-12-21 complete Mental d Health[address], [id number] SNOMED-CT () 2018-12-28 complete Mental d [address], [id number] [id number] SNOMED-CT () 2019-02-24 [facility] Mental d [address], [id number] [phone] Encounters/Encounter Diagnoses Encounter Encounter Diagnosis Diagnosis Diagnosis Date of Service Name Code Code Name CodeSystem Diagnosis Delivery Location [id number] Recurrent SNOMED-CT Behavioral depressive Health disorder, Clinic , , current , episode severe 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 Vital Signs No Information Social History Element Description Description Start End Code CodeSystem AdditionalInfo Date Date SexAssignedAtBirth Female 1950-0 F AdministrativeGender 4-26 Hospital Discharge Instructions Reason For Referral Medical Equipment FDA Assessments
--- OUTSIDE RECORDS SUMMARY | 2019-09-19 12:31 | XMS REPORT ---
:1950 Author Organization [facility] Care Team Providers Name Role Phone VLAD UNDERWOOD Primary Care Physician Unavailable Allergies, Adverse Reactions, Alerts Allergy Code CodeSystem Reaction Severity Criticality Status Start Substance Date Moderate Medications Medication Medication Medication Start Stop Route Dose Status Fill Code CodeSystem Date Date Instructions alprazolam 523360 RxNorm 2018- oral 0.5 mg 1 completed Take 1 tablet 7-10 08-09 tablet three times three a day as times a needed for 30 day day(s) alprazolam 441302 RxNorm 2018- oral 0.5 mg completed for 30 3- 04-17 tablet day(s) desvenlafaxine 1838319 RxNorm 2018- oral 50 mg active for 30 succinate 8-22 11-20 tablet day(s) extended release 24 hr alprazolam 976633 RxNorm 2018- oral 0.5 mg 1 completed 1 tablet 12-15 06-21 tablet three times a three day as needed times a for 30 day(s) day mirtazapine 235483 RxNorm 2018- oral 7.5 mg 1 active 1 tablet at 4-11 10-08 tablet bedtime for at 30 day(s) bedtime alprazolam 080863 RxNorm 2019- oral 0.5 mg 1 active Take 1 tablet 9-19 10-19 tablet three times three a day as times a needed for 30 day day(s) alprazolam 275065 RxNorm 2018- oral 0.5 mg 1 completed 1 tablet 4-17 05-17 tablet three times a three day for 30 times a day(s) day desvenlafaxine 4392229 RxNorm 2017-07- oral 100 mg completed for 30 succinate 2-13 04-11 tablet day(s) extended release 24 hr mirtazapine 936526 RxNorm 2017-07- oral 7.5 mg completed for 30 2-13 04-11 tablet day(s) desvenlafaxine 9174729 RxNorm 2018- oral 25 mg completed for 30 succinate 7- 08- tablet day(s) extended release 24 hr alprazolam 440846 RxNorm 2018- oral 0.5 mg 1 completed 1 tablet 03-09 tablet three times a three day for 30 times a day(s) day desvenlafaxine 4991645 RxNorm 2018- oral 100 mg 1 completed 1 tablet succinate 11-04 tablet once a day extended for 30 day(s) release 24 hr once a day Problems Problem Name Code CodeSystem Alternate Alternate Start End Status Narrative Code CodeSystem Date Date Nicotine 63372876 SNOMED-CT Active dependence, 3- unspecified, uncomplicated Recurrent 19587095 SNOMED-CT Active 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, 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 [address], and [facility], service [id number] (List [id number] separately in addition to the code for primary procedure) SNOMED-CT () 2019-02-04 complete Mental d Health- [address], [id number] [id number] SNOMED-CT () 2018-11-18 complete Mental d Health- [address], [id number] [phone] SNOMED-CT () 2018-12-21 complete Mental d Health- [address], [id number] [id number] SNOMED-CT () 2018-12-28 complete Mental d Health- [address], [id number] [id number] SNOMED-CT () 2019-02-24 complete Mental d Health- [address], [id number] Psychotherap [id number] SNOMED-CT () 2019-03-02 complete Mental y, 45 04 d Health- minutes with [address], [id number] [phone] Psychotherap 027913 SNOMED-CT () 2019-04-20 complete Mental y, 45 04 d Health- minutes with [address], [id number] [id number] Psychotherap 920907 SNOMED-CT () 2019-04-27 complete Mental y, 45 04 d Health- minutes with [address], [id number] [id number] Psychotherap 116063 SNOMED-CT () 2019-05-26 complete Mental y, 45 04 d Health- minutes with [address], [id number] [phone] Psychotherap [id number] SNOMED-CT () 2019-06-10 complete Mental y, 45 04 d Health- minutes with [address], [id number] [id number] Psychotherap 428342 SNOMED-CT () 2019-06-22 complete Mental y, 45 04 d Health- minutes with [address], [id number] [phone] Psychotherap [id number] SNOMED-CT () 2019-06-29 complete Mental y, 45 04 d Health- minutes with [address], [id number] [phone] Psychotherap 129337 SNOMED-CT () 2019-07-08 complete Mental y, 45 04 d Health- minutes with [address], [id number] [id number] Psychotherap 914458 SNOMED-CT () 2019-05-11 complete Mental y, 45 04 d Health- minutes with [address], [id number] [id number] Psychotherap 601440 SNOMED-CT () 2019-07-26 complete Mental y, 45 04 d Health- minutes with [address], [id number] [id number] Psychotherap 402684 SNOMED-CT () 2019-08-10 complete Mental y, 45 04 d Health- minutes with [address], [id number] [phone] Psychotherap 580957 SNOMED-CT () 2019-01-05 complete Mental y, 45 04 d Health- minutes with [address], [id number] [id number] Psychotherap 175224 SNOMED-CT () 2018-11-25 complete Mental y, 45 04 d Health- minutes with [address], [id number] [id number] Psychotherap 203512 SNOMED-CT () 2018-10-28 complete Mental y, 45 04 d Health- minutes with [address], [id number] [id number] Psychotherap [id number] SNOMED-CT () 2018-11-11 complete Mental y, 45 04 d Health- minutes with [address], [id number] [id number] Psychotherap 984945 SNOMED-CT () 2019-02-09 complete Mental y, 45 04 d Health- minutes with [address], [id number] [phone] Psychotherap 092114 SNOMED-CT () 2019-01-19 complete Mental y, 45 04 d Health- minutes with [address], [id number] [id number] Psychotherap 618612 SNOMED-CT () 2019-03-24 complete Mental y, 45 04 d Health- minutes with [address], [id number] [phone] Psychotherap 815443 SNOMED-CT () 2019-04-06 complete Mental y, 45 04 d Health- minutes with [address], [id number] [phone] Psychotherap 808485 SNOMED-CT () 2019-04-14 complete Mental y, 45 04 d Health- minutes with [facility] patient [address], [id number] [id number] Group [id number] SNOMED-CT () 2019-08-10 complete Mental psychotherap 8 d Health- y (other [place] than of a [address] group) [place], [place], [id number] [phone] Group [id number] SNOMED-CT () 2019-07-06 complete Mental psychotherap 8 d Health- y (other [place] than of a [address] group) [place], [place], [id number] [id number] Group [id number] SNOMED-CT () 2019-08-03 complete Mental psychotherap 8 d Health- y (other [place] than of a [address] group) [place], [place], [id number] [phone] Office or [id number] SNOMED-CT () 2019-03-17 complete Mental other 7 d Health- outpatient [facility] visit for [address], established [id number] patient, [phone] which requires at least 2 of these 3 rao components: An expanded problem focused history; An expanded problem focused examination; Medical decision making of low Office or 280803 SNOMED-CT () 2019-04-14 complete Mental other 7 d Health- outpatient [place] visit for [address], [facility] [place] [id number] patient, [phone] which requires at least 2 of these 3 rao components: An expanded problem focused history; An expanded problem focused examination; Medical decision making of low Office or 129865 SNOMED-CT () 2019-02-02 complete Mental other 7 d Health- outpatient [place] visit for [address], established [id number] patient, [phone] which requires at least 2 of these 3 rao components: An expanded problem focused history; An expanded problem focused examination; Medical decision making of low Office or 480032 SNOMED-CT () 2018-11-10 complete Mental other 7 d Health- outpatient [place] visit for [address], established [id number] patient, [phone] which requires at least 2 of these 3 rao components: An expanded problem focused history; An expanded problem focused examination; Medical decision making of [facility] Office or 642896 SNOMED-CT () 2019-01-05 complete Mental other 7 d Health- outpatient [place] visit for [address], established [id number] patient, [phone] which requires at least 2 of these 3 rao components: An expanded problem focused history; An expanded problem focused examination; Medical decision making of [facility] Office or 833107 SNOMED-CT () 2019-05-05 complete Mental other 6 d Health- outpatient [place] visit for [address], established [id number] patient, [phone] which requires at least 2 of these 3 rao components: A problem focused history; A problem focused examination; Straightforw juan medical decision making. Counselin Office or 525575 SNOMED-CT () 2019-07-06 complete Mental other 6 d Health- outpatient [place] visit for [address], established [id number] patient, [phone] which requires at least 2 of these 3 rao components: A problem focused history; A problem focused examination; Straightforw juan medical decision making. Counselin Office or 339525 SNOMED-CT () 2019-06-01 complete Mental other 6 d Health- outpatient [place] visit for [address], established [id number] patient, [phone] which requires at least 2 of these 3 rao components: A problem focused history; A problem focused examination; Straightforw juan medical decision making. Counselin Encounters/Encounter Diagnoses Encounter Encounter Diagnosis Diagnosis Diagnosis Date of Service Name Code Code Name CodeSystem Diagnosis Delivery Location [id number] Recurrent SNOMED-CT Behavioral depressive Health disorder, Clinic , , current , episode severe 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 Vital Signs No Information Social History Element Description Description Start End Code CodeSystem AdditionalInfo Date Date SexAssignedAtBirth Female F AdministrativeGender 11-19 Hospital Discharge Instructions Reason For Referral Medical Equipment FDA Assessments
[2019-09-19] MEDS ORDERED: Ondansetron INJ* 2 MG/ML VIAL IV ONE (13:51)
[2019-09-19] MEDS ORDERED: NS 0.9% 1000 ML** 1,000 ML IV ONE (13:51)
--- NOTE | 2019-09-19 14:14 | ED ---
Abdominal Pain/Female - HPI Summary HPI Summary: Patient is a 68 y/o F presenting to the ED for a chief complaint of diffuse abdominal pain, worse on the right side, which began one week ago and worsened on 09/16/19. Patient complains of chills, nausea, vomiting, and diarrhea. The diarrhea is described as liquid and mucous. No recent abx use or hospitalizations. She denies fever, dysuria, hematuria, or blood in the stool. No aggravating or alleviating factors are reported. Patient notes a history of SI, but denies any at the present time. She admits several suicide attempts in the past. Patient denies prior admissions. Any significant PMHx is denied. Does see GI for IBS. FMHx of glaucoma and rheumatoid arthritis is noted, but DM and HTN is denied. - History of Current Complaint Chief Complaint: EDNauseaVomitDiarrh Stated Complaint: N/V/D PER PT Time Seen by Provider: 09/19/19 13:50 Hx Obtained From: Patient Onset/Duration: Sudden Onset, Lasting Days, Still Present Timing: Constant Severity Initially: Severe Severity Currently: Severe Pain Intensity: 7 Pain Scale Used: 0-10 Numeric Location: Diffuse Radiates: No Aggravating Factor(s): Nothing Alleviating Factor(s): Nothing Associated Signs and Symptoms: Positive: Nausea, Vomiting, Diarrhea. Negative: Fever, Blood in Stool, Urinary Symptoms - Negative dysuria or hematuria Allergies/Adverse Reactions: Allergies Allergy/AdvReac Type Severity Reaction Status Date / Time codeine AdvReac GI Upset Verified 09/19/19 12:24 erythromycin base AdvReac GI Upset Verified 09/19/19 12:24 Home Medications: Home Medications ALPRAZolam TAB* [Xanax TAB*] 0.5 mg PO TID PRN MDD 3 tabs 05/06/12 [History Confirmed 09/19/19] Aspirin 81 mg CHEW TAB* 81 mg PO DAILY 01/08/17 [History Confirmed 09/19/19] Mirtazapine TAB* [Remeron TAB*] 7.5 mg PO BEDTIME 01/08/17 [History Confirmed ] Rosuvastatin Calcium [Crestor] 10 mg PO QPM 01/08/17 [History Confirmed 09/19/19 ] Desvenlafaxine Succinate [Pristiq] 50 mg PO QAM 07/02/18 [History Confirmed ] Desvenlafaxine(NF) [Pristiq(NF)] 100 mg PO DAILY 09/19/19 [History Confirmed ] Methylcellulose [Citrucel] 500 mg PO DAILY 09/19/19 [History Confirmed 09/19/19] Metoclopramide TAB* [Reglan TAB*] 5 mg PO Q8H PRN 4 Days #12 tab MDD 3 09/19/19 [Rx] Sodium Chloride TAB* 1 gm PO DAILY 09/19/19 [History Confirmed 09/19/19] Topiramate TAB(*) [Topamax 25 MG tab] 25 mg PO QPM 09/19/19 [History Confirmed 09/19/19] Topiramate [Topiramate ER 50 mg cap] 50 mg PO BID 09/19/19 [History Confirmed ] PMH/Surg Hx/FS Hx/Imm Hx Previously Healthy: Yes Endocrine/Hematology History: Denies: Hx Anticoagulant Therapy, Hx Diabetes, Hx Thyroid Disease Cardiovascular History: Reports: Other Cardiovascular Problems/Disorders - 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, had cardiac cath, 0 stents Denies: Hx Angina, Hx Coronary Artery Disease, Hx Hypercholesterolemia, Hx Hypertension, Hx Myocardial Infarction, Hx Pacemaker/ICD, Hx Peripheral Vascular Disease, Hx Valvular Heart Disease Respiratory History: Reports: Hx Sleep Apnea Denies: Hx Asthma, Hx Chronic Obstructive Pulmonary Disease (COPD) GI History: Reports: Hx Gall Bladder Disease - Cholecystectomy, Hx Gastroesophageal Reflux Disease - ON MEDICATION FOR, Hx Irritable Bowel, Other GI Disorders - DIARRHEA Denies: Hx Ulcer History: Reports: Hx Renal Disease - hematuria and previous abnormal ct Denies: Hx Dialysis Musculoskeletal History: Denies: Hx Arthritis, Hx Osteoporosis Sensory History: Reports: Hx Cataracts, Hx Contacts or Glasses - glasses Denies: Hx Glaucoma, Hx Legally Blind, Hx Deafness, Hx Hearing Aid Opthamlomology History: Reports: Hx Cataracts, Hx Contacts or Glasses - glasses Denies: Hx Glaucoma, Hx Legally Blind EENT History: Denies: Hx Deafness Neurological History: Reports: Hx Headaches, Hx Migraine - TREATS WITH ACETAMINOPHEN, Hx Seizures - LAST 10 YEARS AGO- NO MEDICATION FOR, Other Neuro Impairments/Disorders - hx of suicide attempts - last one 11/13/15 Denies: Hx Dementia, Hx Transient Ischemic Attacks (TIA) Psychiatric History: Reports: Hx Anxiety - ON MEDICATION FOR, Hx Depression - ON MEDICATION FOR, Hx Inpatient Treatment, Hx Suicide Attempt Denies: Hx Eating Disorder, Hx Panic Disorder, Hx of Violent Episodes Against Others, Hx Substance Abuse - Cancer History Hx Chemotherapy: No Hx Radiation Therapy: No - Surgical History Surgical History: Yes Surgery Procedure, Year, and Place: Tracheostomy 1970. Hysterectomy 1992 ADDITIONAL ABD SURG POST HYSTERECTOMY COMPLICATIONS - ADHESIONS. Cholecystectomy 1992. UTERINE SUSPENSION - . BILATERAL CATATRACTS - 2009. CARDIAC CATH - NO STENTS - 1992 - CAUTERIZE NODE ON HEART Hx Anesthesia Reactions: No Infectious Disease History: No Infectious Disease History: Denies: Hx Hepatitis, Hx Human Immunodeficiency Virus (HIV), Traveled Outside the [place] in Last 30 Days - Family History Known Family History: Positive: Other - breast cancer, rheumatoid arthritis, glaucoma Negative: Hypertension, Diabetes - Social History Occupation: Retired Alcohol Use: Rare Hx Substance Use: No Substance Use Type: Reports: None Hx Tobacco Use: Yes Smoking Status (MU): Light Every Day Tobacco Smoker Type: Cigarettes Amount Used/How Often: 1/2 ppd for 40 years Have You Smoked in the Last Year: Yes Review of Systems Positive: Chills. Negative: Fever Positive: Abdominal Pain - Diffuse, worse on right, Vomiting, Diarrhea, Nausea. Negative: Other - Negative blood in stool Negative: dysuria, hematuria Negative: Other - Negative SI All Other Systems Reviewed And Are Negative: Yes Physical Exam - Summary Physical Exam Summary: Constitutional: Well-developed, Well-nourished, Alert. (-) Distressed Skin: Warm, Dry HENT: Normocephalic; Atraumatic Eyes: Conjunctiva normal Neck: Musculoskeletal ROM normal neck. (-) JVD, (-) Stridor, (-) Nuchal rigidity Cardio: Rhythm regular, rate normal, Heart sounds normal; Intact distal pulses; Radial pulses are 2+ and symmetric. (-) Murmur Pulmonary/Chest wall: Effort normal. (-) Respiratory distress, (-) Wheezes, (-) Rales Abd: Soft, (-) Distension, (-) Guarding, (-) Rebound. RLQ tenderness Musculoskeletal: (-) Edema Lymph: (-) Cervical adenopathy Neuro: Alert, Oriented x3 Psych: Mood and affect Normal Triage Information Reviewed: Yes Vital Signs On Initial Exam: Initial Vitals Temp Pulse Resp BP Pulse Ox 97.5 F 87 19 125/83 95 09/19/19 12:22 09/19/19 12:22 09/19/19 12:22 09/19/19 12:22 09/19/19 12:22 Vital Signs Reviewed: Yes Procedures - Sedation Patient Received Moderate/Deep Sedation with Procedure: No Diagnostics - Vital Signs Vital Signs Temp Pulse Resp BP Pulse Ox 09/19/19 13:56 64 116/90 98 09/19/19 13:52 69 98 09/19/19 12:22 97.5 F 87 19 125/83 95 - Laboratory Result Diagrams: 09/19/19 14:10 09/19/19 14:10 Lab Statement: Any lab studies that have been ordered have been reviewed, and results considered in the medical decision making process. - CT Abdomen/Pelvis CT CT Interpretation Completed By: Radiologist Summary of CT Findings: Abdomen/Pelvis CT IMPRESSION: #. Hepatosteatosis. #. Post cholecystectomy. #. No recurrent or new suspicious renal lesion evident. Unchanged 0.4 cm nonobstructing. stone at the midpole of the RIGHT kidney. Negative for hydronephrosis. #. While the appendix is not discretely visualized , there is no inflammatory change in the. right lower quadrant or region of the tip of the cecum to suggest presence of an acute. inflammatory process. # . No acute pathologic process of the gastrointestinal tract evident. #. Negative for lymphadenopathy or suspicious bone lesions. Reviewed by Dr. Felix. Re-Evaluation - Re-Evaluation First Eval Re-Evaluation Time: 18:13 Change: Improved Comment: At 18:13, patient reports no further episodes of vomiting. Second Eval Re-Evaluation Time: 18:29 Change: Unchanged Comment: At 18:29, patient feels comfortable going home. Abdominal Pain Fem Course/Dx - Course Course Of Treatment: 68 y/o F w hx IBS p/w n/v/d. - well appearing, abdomen soft. VSS. labs notable for no leukocytosis, normal electrolytes. Patient did have episode of vomiting and diarrhea in the ED. Patient was given Zofran which not help, wasn't given Reglan which improved her symptoms. Patient's CT scan does not show any obvious cause for diarrhea, suspect that she could have a viral syndrome or IBS exacerbation. No recent hopsitalizations or abx, lower suspicion c diff. - will give IVF, PO trial and reassess. Ambulating safely in ED does not feel weak. - Diagnoses Provider Diagnoses: Nausea, Vomiting, Diarrhea Discharge ED - Sign-Out/Discharge Documenting (check all that apply): Patient Departure - Discharge - Discharge Plan Condition: Stable Disposition: HOME Prescriptions: Metoclopramide TAB* [Reglan TAB*] 5 mg PO Q8H PRN 4 Days #12 tab MDD 3 PRN Reason: Nausea Patient Education Materials: Acute Nausea and Vomiting (ED), Acute Diarrhea (ED ) Referrals: Herbert Romero MD [Primary Care Provider] - Additional Instructions: You were seen in emergency department for nausea vomiting and diarrhea. Please drink lots of fluids including water or Gatorade. Please return to emergency department if you have worsening pain, continued vomiting and diarrhea and unable to drink fluids, continued fevers or if you're concerned. Please take reglan as needed every 8 hours or vomiting. If any lab studies are completed at time of discharge, you'll be called with the relevant results. Please follow up with her primary care doctor in next 1-2 days. It was a pleasure taking care of you today! - Billing Disposition and Condition Condition: STABLE Disposition: Home - Attestation Statements Document Initiated by Juan J: Yes Documenting Maidaibe: Jessica Jeter Provider For Whom Juan J is Documenting (Include Credential): Zulma Felix MD Scribe Attestation: I, Jessica Jeter, scribed for Zulma Felix MD on 09/19/19 at 1838. Scribe Documentation Reviewed: Yes Provider Attestation: The documentation as recorded by the Jessica reyez accurately reflects the service I personally performed and the decisions made by me, Zulma Felix MD Status of Scribe Document: Viewed
[2019-09-19 14:26] LABS: ABS Basophils 0.1 10^3/ul (0-0.2); ABS Eosinophils 0.1 10^3/ul (0-0.6); ABS Lymphocytes 2.1 10^3/ul (1.0-4.8); ABS Monocytes 0.5 10^3/ul (0-0.8); ABS Neutrophils 3.7 10^3/ul (1.5-7.7); Hematocrit 40 % (35-47); Hemoglobin 13.7 g/dL (12.0-16.0); Lymphocyte % 32.5 %; Mean Corpuscular HGB Conc 34 g/dL (31-36); Mean Corpuscular Hemoglobin 33 pg (27-31); Mean Corpuscular Volume 96 fL (80-97); Mean Platelet Volume 9.5 fL (7.4-10.4); Nucleated Red Blood Cells % 0.1; Platelet Count 243 10^3/uL (150-450); Red Blood Count 4.18 10^6 /uL (3.70-4.87); Red Cell Distribution Width 13 % (10-15); White Blood Count 6.4 10^3/uL (3.5-10.8)
[2019-09-19 14:47] LABS: Albumin 4.2 g/dL (3.2-5.2); Calcium 8.8 mg/dL (8.6-10.3); Potassium 3.6 mmol/L (3.5-5.0); Total Bilirubin 0.5 mg/dL (0.2-1.0)
[2019-09-19 14:53] LABS: Albumin/Globulin Ratio 1.9 (1-3); BUN/Creatinine Ratio 17.3 (8-20); EGFR African American 85.1 (>60); EGFR Non-African American 70.3 (>60); Globulin 2.2 g/dL (2-4); Total Protein 6.4 g/dL (6.4-8.9)
[2019-09-19] MEDS ORDERED: Iodixanol* (CONTRAST) 320 MG/ML 100 ML SDV IV ONE (14:57)
[2019-09-19] MEDS ORDERED: Metoclopramide IV* 5 MG/ML 2 ML VIAL IV ONE (17:11)
[2019-09-19] MEDS ORDERED: Metoclopramide TAB* 10 MG PO ONE (18:45)
[2019-09-19 19:18] VITALS: BP 138/78
== END 2019-09-19 19:17 | disposition home or self-care (01) ==
LOC: ED 12:22
DX: R11.2 Nausea with vomiting, unspecified (principal); R19.7 Diarrhea, unspecified; K21.9 Gastro-esophageal reflux disease without esophagitis; F41.9 Anxiety disorder, unspecified; F32.9 Major depressive disorder, single episode, unspecified; F17.210 Nicotine dependence, cigarettes, uncomplicated; Z90.710 Acquired absence of both cervix and uterus; Z90.49 Acquired absence of other specified parts of digestive tract; Z79.82 Long term (current) use of aspirin; Z79.899 Other long term (current) drug therapy; Z88.1 Allergy status to other antibiotic agents; Z88.5 Allergy status to narcotic agent
CPT/HCPCS: 36415; 74177; 80053; 83690; 83735; 85025; 96361; 96374; 96375; 99282; A9270-GY; J2405; J2765; Q9967